=== PATIENT | male | born 1990 | race Two or more races ===

== ENCOUNTER 2022-06-10 07:38 | Emergency (ER) | payer OTHER, SELFPAY ==
--- NOTE | ~2022-06-10 | CT_ITS ---
EXAMINATION: CT ABDOMEN AND PELVIS WITH CONTRAST CLINICAL INFORMATION: Right coronary femur. History of Ezequiel gangrene. COMPARISON: None available. TECHNIQUE: Multidetector volumetric images were obtained from the superior aspect of the liver through the pubic symphysis following administration 85 mL of Omnipaque 350 intravenous contrast. Sagittal and coronal reformatted images were obtained on the technologist's workstation. Oral contrast: No This CT examination was performed using dose optimization techniques as appropriate, variously including the following: *Automated exposure control *Adjustment of mA and/or kV according to patient size (this includes techniques or standardized protocols for targeted exams where dose is matched to indication/reason for exam; i.e. extremities or head) *Use of iterative reconstruction technique DLP: 958 mGy-cm FINDINGS: LUNG BASES: The lung bases appear clear, with no evidence of inflammation or nodules. LIVER, GALLBLADDER, AND BILIARY TREE: Suspect fatty infiltration. Subcentimeter, segment 4, hypodense hepatic lesion (image 19, series 3), too small to characterize. In the absence of known or suspected malignancy elsewhere, the finding probably represents a benign entity, such as a simple cyst or hemangioma. No biliary ductal dilatation is appreciated. Unremarkable appearance of the gallbladder. PANCREAS: Unremarkable SPLEEN: Measures 12.9 cm in sagittal dimension. ADRENAL GLANDS: Unremarkable KIDNEYS AND URETERS: The kidneys appear unremarkable in size, shape, and attenuation. 0.5 cm, nonobstructing left lower pole collecting system stone. 0.4 cm, nonobstructing right mid to lower pole collecting system stone. No evidence of hydronephrosis, hydroureter, or significant perinephric stranding on either side. BLADDER: Unremarkable GASTROINTESTINAL TRACT: The small and large bowel appear unremarkable. Particular, the perianal region appears normal. Few, scattered colonic diverticula without evidence of diverticulitis. Normal-appearing distal ileum and vermiform appendix. ABDOMINAL WALL: Irregularity of the skin surface and induration of subcutaneous fat in the region of the right groin/upper inner thigh. Suspect associated 0.7 cm diameter by 5.2 cm in length phlegmon versus sinus tract (image 104, series 3). This does not appear to communicate with an internal organ. No evidence of subcutaneous air. No significant hernia is appreciated. LYMPH NODES: No evidence of adenopathy by size criteria. VASCULAR: Unremarkable PELVIC VISCERA: Unremarkable OSSEOUS STRUCTURES: Unremarkable CT/CT abdomen pelvis w IV con IMPRESSION: Irregularity of the skin surface and induration of subcutaneous fat in the region of the right groin/upper inner thigh. Suspect associated 0.7 cm diameter by 5.2 cm in length phlegmon versus sinus tract, which does not appear to communicate with an internal organ. No evidence of subcutaneous air. Additional findings, as above.
[2022-06-10 07:45] VITALS: BP 131/82; PULSE 109; RESP 17; TEMP 36.8; O2SAT 97; BMI 38.2
--- NOTE | 2022-06-10 08:14 | ED_ITS ---
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 Patient denies any scrotal discomfort or pain. He denies any fevers or chills. Related Data Previous Rx's Medication Instructions Recorded cephalexin 500 mg capsule 500 mg PO BID 7 days #14 caps 06/10/22 doxycycline monohydrate 100 mg 100 mg PO BID 7 days #14 caps 06/10/22 capsule Allergies Allergy/AdvReac Type Severity Reaction Status Date / Time No Known Allergies Allergy Verified 06/10/22 08:12 Review of Systems 2 Review of Systems: Pertinent positives and negatives as stated in HPI PMFSH Past Medical History Source: nursing notes reviewed Medical History (Updated 06/10/22 @ 12:35 by Tsering Calderón MD) Gangrene Kidney stone Penile cyst Surgical History (Updated 06/10/22 @ 09:05 by Tisha Sanchez RN) History of nasal surgery Social History Social History Alcohol intake: never Smoked in Last 30 Days: No Use of substances other than those prescribed or required for medical reasons: Yes Substance Use Type: Marijuana Advance Directives: No Advance Directives Information Provided: No Physical Exam ED Vital Signs: Vital Signs - 24 hr 06/10/22 07:45 06/10/22 10:04 06/10/22 12:27 Temperature 98.2 F Pulse Rate 109 H 88 76 Respiratory Rate 17 16 16 Blood Pressure 131/82 143/60 H 147/75 H Pulse Oximetry 97 98 97 Oxygen Delivery Method Room Air Room Air Room Air BMI result Body Mass Index 38.2 VITAL SIGNS: Reviewed. GENERAL: Well developed, well nourished, in no acute distress. HEAD: Normocephalic/atraumatic EYES: PERRLA, EOMI EARS: Ext canals without abnormality NOSE: Nares patent bilateral OROPHARYNX: no oral lesions noted, posterior pharynx clear NECK: Supple, no adenopathy LUNGS: Normal breath sounds. No adventitious sounds or accessory muscle use. SpO2<97> CARDIOVASCULAR: Regular rate and rhythm without noted murmurs ABDOMEN: Soft, non-tender, non-distended with bowel sounds. 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 There is a foul odor MUSCULOSKELETAL: No tenderness, deformities, or effusions noted on gross inspection. EXTREMITIES: No cyanosis, clubbing or edema. SKIN: Inspection of the skin reveals no rashes NEUROLOGIC: Alert and oriented x 4. Strength and sensation to light touch were grossly intact x 4. Medications Administered Discontinued Medications Generic Name Dose Route Start Last Admin Trade Name Freq PRN Reason Stop Dose Admin Sodium Chloride 1,000 mls @ 999 mls/hr 06/10/22 08:15 06/10/22 11:00 Ns IV 06/10/22 09:15 Infused .Q1H1M EULALIA Infusion Piperacillin Sod/Tazobactam 50 mls @ 100 mls/hr 06/10/22 08:13 06/10/22 09:26 Sod 3.375 gm/ Sodium Chloride IV 06/10/22 08:42 Infused ONCE ONE Infusion Vancomycin HCl 2,000 mg in 500 mls @ 250 mls/hr 06/10/22 08:30 06/10/22 11:05 Vancomycin/Ns IV 06/10/22 10:29 250 mls/hr ONCE ONE Administration Iohexol 100 ml 06/10/22 10:41 06/10/22 10:41 Iohexol 350 Mg/Ml 100 Ml Infus..Btl IV 06/10/22 10:42 85 ml ONCE ONE Administration Medical Decision Making Medical Decision Making [facility] Narrative: 0818: 31-year-old male with history and clinical presentation concerning for obvious groin infection, fluids, lactic acid/blood culture/antibiotics ordered. 1205: I reviewed all investigations to include imaging studies, patient has already received antibiotics, I reached out to General surgery and communicated my concerns about discharging even in the absence of any subcutaneous air or clinical exam findings of crepitus given patient's prior history Ezequiel's. 1225: Dr. Zaldivar came by and evaluated the patient and feels that patient most likely had a case of hidradenitis and recommends that patient be discharged with antibiotics and he can follow-up in their office. I discussed all results, findings as well as plans with the patient he is otherwise discharged home in stable condition with antibiotics. Differential Diagnosis Please see the discussion above Consult Healthcare Provider Management of the patient was discussed with: Drier Feeder Please see the discussion above Lab Data Please see the discussion above 06/10/22 09:03 06/10/22 09:03 Labs: Lab Results 06/10/22 06/10/22 06/10/22 Range/Units 08:35 09:03 09:03 WBC 12.5 H (4.8-10.8) X10*3/uL RBC 4.72 (4.60-5.80) X10*6/uL Hgb 14.5 (14.0-18.0) g/dl Hct 42.7 (42.0-52.0) % MCV 90.5 (80.0-98.0) fL MCH 30.7 (27.0-33.0) pg MCHC 34.0 (31.0-36.0) g/dl RDW 12.0 (11.0-16.0) % Plt Count 225 (160-400) X10*3/uL MPV 10.3 (9.4-12.4) fL Immature Gran % (Auto) 0.4 (0.0-0.4) % Neut % (Auto) 76.1 H (45-73) % Lymph % (Auto) 14.2 L (20-40) % [place] % (Auto) 8.3 (2-11) % Eos % (Auto) 0.7 (0-4) % Baso % (Auto) 0.3 (0-2) % Lymph # (Auto) 1.8 (1.2-4.9) X10*3/uL [place] # (Auto) 1.0 (0.1-1.2) X10*3/uL Eos # (Auto) 0.1 (0.0-0.4) X10*3/uL Baso # (Auto) 0.0 (0.0-0.2) X10*3/uL Abs Immat Gran (auto) 0.05 H (0.00-0.03) X10*3/uL Absolute Neuts (auto) 9.5 H (2.0-8.3) x10*3/uL Absolute Nucleated RBC 0.000 (0.0-0.012) X10*3/uL Nucleated RBC % (auto) 0.0 (0.0-0.2) /100WBC Sodium 143 (135-145) mmol/L Potassium 3.5 (3.3-5.1) mmol/L Chloride 107 (96-108) mmol/L Carbon Dioxide 26 (22-29) mmol/L Anion Gap 14 (12-20) BUN 14 (9-16) mg/dL Creatinine 1.02 (0.5-1.4) mg/dL Estim Creat Clear Calc 140.9 Estimated GFR > 60 Random Glucose 88 (60-115) mg/dL Lactic Acid (0.5-2.0) mmol/L Calcium 9.0 (8.4-10.2) mg/dL Total Bilirubin 1.0 (0.0-1.0) mg/dL AST 20 (5-37) U/L ALT 36 (0-40) U/L Alkaline Phosphatase 57 (39-117) U/L Total Protein 6.8 (6.5-8.0) g/dL Albumin 4.2 (3.5-5.0) g/dL Urine Color Yellow Urine Appearance Clear Urine pH 5.5 (5.0-9.0) Ur Specific [place] >= 1.030 H (1.005-1.025) Urine Protein Negative (Neg-Trace) mg/dL Urine Glucose (UA) Negative (Negative) mg/dL Urine Ketones 15 (Negative) mg/dL Urine Blood Negative (Negative) Urine Nitrite Negative (Negative) Ur Leukocyte Esterase Negative (Negative) 06/10/22 Range/Units 09:03 WBC (4.8-10.8) X10*3/uL RBC (4.60-5.80) X10*6/uL Hgb (14.0-18.0) g/dl Hct (42.0-52.0) % MCV (80.0-98.0) fL MCH (27.0-33.0) pg MCHC (31.0-36.0) g/dl RDW (11.0-16.0) % Plt Count (160-400) X10*3/uL MPV (9.4-12.4) fL Immature Gran % (Auto) (0.0-0.4) % Neut % (Auto) (45-73) % Lymph % (Auto) (20-40) % [place] % (Auto) (2-11) % Eos % (Auto) (0-4) % Baso % (Auto) (0-2) % Lymph # (Auto) (1.2-4.9) X10*3/uL [place] # (Auto) (0.1-1.2) X10*3/uL Eos # (Auto) (0.0-0.4) X10*3/uL Baso # (Auto) (0.0-0.2) X10*3/uL Abs Immat Gran (auto) (0.00-0.03) X10*3/uL Absolute Neuts (auto) (2.0-8.3) x10*3/uL Absolute Nucleated RBC (0.0-0.012) X10*3/uL Nucleated RBC % (auto) (0.0-0.2) /100WBC Sodium (135-145) mmol/L Potassium (3.3-5.1) mmol/L Chloride (96-108) mmol/L Carbon Dioxide (22-29) mmol/L Anion Gap (12-20) BUN (9-16) mg/dL Creatinine (0.5-1.4) mg/dL Estim Creat Clear Calc Estimated GFR Random Glucose (60-115) mg/dL Lactic Acid 1.5 (0.5-2.0) mmol/L Calcium (8.4-10.2) mg/dL Total Bilirubin (0.0-1.0) mg/dL AST (5-37) U/L ALT (0-40) U/L Alkaline Phosphatase (39-117) U/L Total Protein (6.5-8.0) g/dL Albumin (3.5-5.0) g/dL Urine Color Urine Appearance Urine pH (5.0-9.0) Ur Specific [place] (1.005-1.025) Urine Protein (Neg-Trace) mg/dL Urine Glucose (UA) (Negative) mg/dL Urine Ketones (Negative) mg/dL Urine Blood (Negative) Urine Nitrite (Negative) Ur Leukocyte Esterase (Negative) Radiology Impression Radiologist Impression: My interpretation is in agreement with radiology's impression of the imaging studies. Discharge Plan Discharge Clinical Impression: Hidradenitis suppurativa Patient Disposition: Home, Self-Care Instructions: Hidradenitis Suppurativa (ED) Additional Instructions: 1. Use warm compresses to the area to promote drainage. 2. Complete the entire course of antibiotics as prescribed. 3. You have been given a referral to follow-up with general surgery and should call the office 1st thing in the morning to set up an appointment for re- evaluation. Return to the ER for any worsening symptoms. Prescriptions: New doxycycline monohydrate 100 mg capsule 100 mg PO BID 7 Days Qty: 14 0RF cephalexin 500 mg capsule 500 mg PO BID 7 Days Qty: 14 0RF Referrals: Elie Zaldivar MD [Physician] -
[2022-06-10 08:43] LABS: Appearance Urine Clear; Color Urine Yellow; Glucose Urine UA Negative (Negative); Leukocyte Esterase Urine Negative (Negative); Nitrite Urine Negative (Negative); PH 5.5 (5.0-9.0); Specific Gravity - Urine >= 1.030 (1.005-1.025); Urine Blood Negative (Negative); Urine Ketones 15 mg/dL (Negative); Urine Protein Negative (Neg-Trace)
[2022-06-10] MEDS: 0.9 % Sodium Chloride 1,000 ML 999 ML IV (08:56)
[2022-06-10] MEDS: Piperacillin Sodium/Tazobactam 3.375 GM in 0.9 % Sodium Chloride 50 ML IV (08:56)
--- NOTE | 2022-06-10 09:06 | PC.NURSE ---
patient a&ox3, iv inserted, labs drawn, urine obtained, IVF hung per order, 1st abx hung per order, rt groin redness/warm to touch, 8/10 pain, call de leon within reach, will continue to monitor.
[2022-06-10 09:07] LABS: MANUAL DIFF FLAG NO
[2022-06-10 09:08] LABS: Basophils Percent Auto 0.3 % (0-2); Eosinophils Absolute Auto 0.1 X10*3/uL (0.0-0.4); Eosinophils Percent Auto 0.7 % (0-4); Hematocrit 42.7 % (42.0-52.0); Hemoglobin 14.5 g/dl (14.0-18.0); Imm Gran Abs Auto 0.05 X10*3/uL (0.00-0.03); Imm Gran Pct Auto 0.4 % (0.0-0.4); Lymphocytes Absolute Auto 1.8 X10*3/uL (1.2-4.9); Lymphocytes Percent Auto 14.2 % (20-40); Mean Corpuscular Hemoglobin 30.7 pg (27.0-33.0); Mean Corpuscular Volume 90.5 fL (80.0-98.0); Mean Platelet Volume 10.3 fL (9.4-12.4); Monocytes Percent Auto 8.3 % (2-11); Neutrophils Absolute Auto 9.5 x10*3/uL (2.0-8.3); Neutrophils Percent Auto 76.1 % (45-73); Platelet Count 225 X10*3/uL (160-400); Red Blood Count 4.72 X10*6/uL (4.60-5.80); White Blood Count 12.5 X10*3/uL (4.8-10.8)
[2022-06-10 09:23] LABS: Lactic Acid 1.5 mmol/L (0.5-2.0)
[2022-06-10 09:28] LABS: Alanine Aminotransferase 36 U/L (0-40); Albumin Level 4.2 g/dL (3.5-5.0); Alkaline Phosphatase 57 U/L (39-117); Anion Gap 14 (12-20); Aspartate Amino Transferase 20 U/L (5-37); Blood Urea Nitrogen 14 mg/dL (9-16); Carbon Dioxide 26 mmol/L (22-29); Chloride 107 mmol/L (96-108); Creatinine Clr Calc Pharmacy 140.9; Estimated Glomerular Filt Rate > 60; Glucose Random 88 mg/dL (60-115); Potassium 3.5 mmol/L (3.3-5.1); Sodium 143 mmol/L (135-145); Total Protein 6.8 g/dL (6.5-8.0)
[2022-06-10 10:04] VITALS: BP 143/60; PULSE 88; RESP 16; O2SAT 98
--- NOTE | 2022-06-10 10:24 | PC.NURSE ---
pt to CT scan, will hang second abx upon his return.
[2022-06-10] MEDS: iohexoL 350 MG/ML 100 ML INFUS..BTL IV (10:41)
[2022-06-10] MEDS: vancomycin/NS 2,000 MG/500 ML PLAST..BAG 250 MG IV (11:05)
[2022-06-10 12:27] VITALS: BP 147/75; PULSE 76; RESP 16; O2SAT 97
--- NOTE | 2022-06-10 12:54 | P.CONGS_ITS ---
History of Present Illness Consult details Consult date: 06/10/22 Narrative: ER consult for evaluation of a right groin draining infective process. Approximately over a year ago patient had some sort of surgery involving the right groin crease area which, after examination, looks like he had an wide local excision for hidradenitis suppurativa. He describes that he had some sort of significant infection suggestive of necrotizing fasciitis but though surgical incision does not correspond to that history. Patient today has had approximately 3-4 day history of drainage from the area. Patient denies any fever or chills. He is not septic appearing. He is here with his significant other. Chart was reviewed and patient evaluated. White blood cell count is 12.5 PMFSH Past Medical History Medical History (Updated 06/10/22 @ 12:35 by Tsering Calderón MD) Gangrene Kidney stone Penile cyst Surgical History Surgical History (Updated 06/10/22 @ 09:05 by Tisha Sanchez RN) History of nasal surgery Social History Social History Alcohol intake: never Smoked in Last 30 Days: No Use of substances other than those prescribed or required for medical reasons: Yes Substance Use Type: Marijuana Advance Directives: No Advance Directives Information Provided: No Meds Allergies Allergy/AdvReac Type Severity Reaction Status Date / Time No Known Allergies Allergy Verified 06/10/22 08:12 Physical Exam Vital Signs: Vital Signs: Last Vital Signs Temp 98.2 F 06/10/22 07:45 Pulse 76 06/10/22 12:27 Resp 16 06/10/22 12:27 BP 147/75 H 06/10/22 12:27 Pulse Ox 97 06/10/22 12:27 O2 Del Method Room Air 06/10/22 12:27 BMI result Body Mass Index 38.2 Extrem: Other: Patient has what appears to be a flare-up of hidradenitis suppurativa along the medial aspect of his right groin in proximity to a previous surgical excision site. The area demonstrates some mild erythema and some spontaneous drainage. Mildly tender to palpation. No groin adenopathy appreciated. Extremities grossly neurovascularly intact. Results Labs 06/10/22 09:03 06/10/22 09:03 Labs: Abnormal lab results 06/10/22 06/10/22 Range/Units 08:35 09:03 WBC 12.5 H (4.8-10.8) X10*3/uL Neut % (Auto) 76.1 H (45-73) % Lymph % (Auto) 14.2 L (20-40) % Abs Immat Gran (auto) 0.05 H (0.00-0.03) X10*3/uL Absolute Neuts (auto) 9.5 H (2.0-8.3) x10*3/uL Ur Specific [place] >= 1.030 H (1.005-1.025) Short CBC 06/10/22 Range/Units 09:03 WBC 12.5 H (4.8-10.8) X10*3/uL Hgb 14.5 (14.0-18.0) g/dl Hct 42.7 (42.0-52.0) % Plt Count 225 (160-400) X10*3/uL BMP 06/10/22 09:03 Sodium 143 Potassium 3.5 Chloride 107 Carbon Dioxide 26 BUN 14 Creatinine 1.02 Calcium 9.0 Liver Function 06/10/22 Range/Units 09:03 Total Bilirubin 1.0 (0.0-1.0) mg/dL AST 20 (5-37) U/L ALT 36 (0-40) U/L Alkaline Phosphatase 57 (39-117) U/L Albumin 4.2 (3.5-5.0) g/dL Urine 06/10/22 Range/Units 08:35 Urine Color Yellow Urine Appearance Clear Urine pH 5.5 (5.0-9.0) Ur Specific [place] >= 1.030 H (1.005-1.025) Urine Protein Negative (Neg-Trace) mg/dL Urine Glucose (UA) Negative (Negative) mg/dL All other labs normal. Assessment and Plan (1) Hidradenitis suppurativa: Status: Acute Plan I discussed with the patient and afterwards with the ER physician caring for the patient that this appears to be a mild flare-up of his hidradenitis suppurativa. The patient is not septic or ill appearing. He was is receiving IV antibiotics. At present, my current recommendation is to send him home with oral antibiotics, local wound care in the form of warm compresses to the area, and have him call for follow-up in the surgical clinic next week or p.r.n.. Should his symptoms progress or worsen there is interim, should return to the ER. Time Spent With Patient Time: Total time managing care of this patient today ____ minutes. Procedures Date of Service Date of Service: 06/10/22
== END 2022-06-10 13:13 | disposition home or self-care (01) ==
PROVIDERS: Emergency Provider Student in an Organized Health Care Education/Training Program
DX: L73.2 Hidradenitis suppurativa (principal); R10.31 Right lower quadrant pain; F12.90 Cannabis use, unspecified, uncomplicated
CPT/HCPCS: 36415; 74177; 80053; 81003; 83605; 85025; 87040; 96361; 96365; 96366; 96367; 99284; J2543; J3370; Q9967

== ENCOUNTER 2023-11-01 13:43 | Emergency (ER) | payer OTHER, SELFPAY ==
--- NOTE | ~2023-11-01 | XR_ITS ---
EXAMINATION: XR HAND/WRIST, RIGHT CLINICAL INFORMATION: Fall, trauma, ulnar pain COMPARISON: None available. TECHNIQUE: Four views of the right hand and wrist. FINDINGS: Comminuted possibly intra-articular fracture of the base of the fourth metacarpal with some displaced chip fracture fragments noted along the dorsal aspect of the hand. Soft tissue swelling. Joint spaces are maintained. XR/XR hand wrist RT IMPRESSION: 1. Comminuted possibly intra-articular fracture of the base of the fourth metacarpal with some displaced chip fracture fragments noted along the dorsal aspect of the hand. 2. Soft tissue swelling about the hand. Electronically signed by: Esthela Montemayor MD 11/01/2023 02:39 PM EDT RP
--- NOTE | 2023-11-01 13:44 | ED_ITS ---
HPI - Extremity Injury (Upper) General Chief Complaint: Extremity Injury, Upper Stated Complaint: r hand inj Time Seen by Provider: 11/01/23 15:59 Source: patient Mode of arrival: ambulatory Limitations: no limitations History of Present Illness ED Provider: Parth Keen PA-C HPI narrative: 32-year-old male presents to ED for right hand pain. Patient states he was doing some car work any slipped and fell onto his right outstretched hand. Patient denies hitting head or loss of consciousness. Patient denies any other complaints. Related Data Previous Rx's ?Medication ?Instructions ?Recorded cephalexin 500 mg capsule 500 mg PO BID 7 days #14 caps 06/10/22 doxycycline monohydrate 100 mg 100 mg PO BID 7 days #14 caps 06/10/22 capsule naproxen 500 mg tablet 500 mg PO BID PRN pain 7 days #14 11/01/23 tabs Allergies Allergy/AdvReac Type Severity Reaction Status Date / Time No Known Allergies Allergy Verified 11/01/23 13:47 Review of Systems 2 Review of Systems: Right hand pain Yes all other systems are reviewed and are negative [facility] Past Medical History Medical History (Updated 11/01/23 @ 17:08 by CLAUDE Juarez) Gangrene Penile cyst Kidney stone Surgical History (Updated 06/10/22 @ 09:05 by Tisha Sanchez RN) History of nasal surgery Social History Social History Alcohol intake: never Substance Use Type: Marijuana Advance Directives: No Advance Directives Information Provided: Yes Do you have a plan to hurt others: No Plan Physical Exam 2 Vital Signs: Vital Signs: Last Vital Signs Temp 98 F 11/01/23 17:16 Pulse 76 11/01/23 17:16 Resp 18 11/01/23 17:16 BP 132/78 11/01/23 17:16 Pulse Ox 98 11/01/23 16:54 O2 Del Method Room Air 11/01/23 16:54 O2 Flow Rate 98 11/01/23 17:16 BMI result Body Mass Index 32.1 Const: General: cooperative, healthy appearing, comfortable, no acute distress, well developed, alert, awake and Physically active O rientation/consciousness: patient oriented x3 HEENT: Head: Yes normal to inspection, Yes No palpable skull fracture present, Yes normocephalic, Yes atraumatic and No abrasion Eyes: General: appearance normal, both eyes and all related structures Neck: Neck: Yes normal visual inspection, Yes full ROM, Yes no lymphadenopathy, Yes no meningeal signs, Yes trachea midline, Yes supple, No anterior neck swelling and No tender Chest: Chest palpation & inspection: normal inspection of the chest and normal palpation of entire chest wall Resp: Effort & Inspection: normal respiratory effort and able to speak in complete sentences Auscultation: clear to auscultation bilaterally Cardio: Jugular venous distension: no JVD Heart sounds: S1 normal heart sound present and S2 normal heart sound present GI: Inspection: Yes normal to inspection Palpation (GI): Soft to palpation, not firm, nontender, no guarding and not rigid : General: No CVA tenderness and Yes no CVA tenderness Back/Spine/Pelvis: Back: no CVA tenderness, No CVA tenderness and No back tenderness Skin: General skin exam: no rashes or lesions noted, elasticity normal and turgor normal Neuro: General: patient oriented x3, gait normal, tone normal, moves all extremities, Normal light touch and pain sensation, no meningeal signs, no focal motor deficits, CN's II-XI intact bilaterally and normal sensation to monofilament Extrem: General: Yes normal to inspection, Yes full ROM and Yes capillary refill normal Hand/finger images: 1. Positive for tenderness on palpation. Negative for crepitus, ecchymosis, or obvious deformity. Motor exam intact but limited due to pain. Neurovascular exam intact Psych: Appearance: grossly normal, well kempt and not disheveled Course Course Course Narrative: This is an RME performed by Zach Narayan CNP: Additional HPI, ROS, PE not included below will be deferred to primary provider. Patient is a 32-year-old male who presents to emergency department for evaluation of a right hand injury. States he was working on a car, who has had slipped essentially striking down onto the concrete. Reports that he felt a pop. Pain is localized to the ulnar aspect of the wrist and radiates to the 4th and 5th digit. Has associated numbness tingling and burning sensation. Weakness to the hand. Wrist is held in a slightly flexed position. 2+ radial pulse. Plan: XR Medical Decision Making Medical Decision Making MDM Narrative: 32-year-old male presents to ED for right hand pain.positive for metacarpal fracture. Presently no need for reduction. X-ray committed fracture. Patient is placed in ulnar gutter splint. Patient well-appearing. Patient explained worrisome signs and informed to follow up with primary care provider. Patient given card for information to call financial office to help with his insurance. Differential Diagnosis Differential Diagnoses: The differential diagnosis associated with the presentation includes (Fracture, dislocation,) Admission/Observation Consideration of admission/observation: Escalation of care including admission/observation considered Independent Interpretation I performed an independent interpretation of an: Plain X-Ray Radiology Impression Discussion of test interpretation with radiology: I have reviewed the radiologist's reading. Independent Historian Clinical information obtained from an independent historian. History obtained from or confirmed by: Other (Patient) External Record Review External record reviewed: Other (Prior visits) Discharge Plan Discharge Clinical Impression: Fracture of hand Patient Disposition: Home, Self-Care Instructions: Hand Fracture (ED) Additional Instructions: Return to the ED immediately for any bluish black discoloration, numbness/tingling, redness, severe pain, coldness, hotness, or any other concerning symptoms. Recommend follow-up with orthopedic surgeon Prescriptions: New naproxen 500 mg tablet 500 mg PO BID PRN (Reason: pain) 7 Days Qty: 14 0RF No Action doxycycline monohydrate 100 mg capsule 100 mg PO BID 7 Days Qty: 14 0RF cephalexin 500 mg capsule 500 mg PO BID 7 Days Qty: 14 0RF Referrals: [facility] Orthopedic Surgeons [Provider Group] (hand fracture) Stand Alone Forms: Work/School Release Interventions: ED Discharge Assessment Last Done: 11/01/23 17:16 Discharge Date/Time: 11/01/23 17:17 Print Language: Kyrgyz
[2023-11-01 13:45] VITALS: BP 130/83; PULSE 77; RESP 18; TEMP 36.8; O2SAT 98; BMI 32.1
[2023-11-01 16:54] VITALS: BP 132/78; PULSE 76; RESP 18; TEMP 36.6; O2SAT 98
[2023-11-01 17:16] VITALS: BP 132/78; PULSE 76; RESP 18; TEMP 36.6
== END 2023-11-01 17:17 | disposition home or self-care (01) ==
PROVIDERS: Emergency Provider Emergency Medicine Emergency Medical Services
DX: S62.91XA Unspecified fracture of right hand, initial encounter for closed fracture (principal); M25.531 Pain in right wrist; Y29.XXXA Contact with blunt object, undetermined intent, initial encounter; Y93.89 Activity, other specified; Y92.89 Other specified places as the place of occurrence of the external cause; Y99.8 Other external cause status
CPT/HCPCS: 29125; 73110; 73130; 99282; 99284

== ENCOUNTER 2023-11-03 08:57 | Outpatient (REF) | payer SELFPAY ==
--- NOTE | ~2023-11-03 | XR_ITS ---
EXAMINATION: XR HAND, RIGHT CLINICAL INFORMATION: M79.641 - Pain in right hand : Follow-up fracture fourth proximal metacarpal, dorsal triquetral. COMPARISON: 11/01/2023. TECHNIQUE: PA, lateral, and oblique views of the right hand. FINDINGS: Redemonstration of intra-articular oblique fracture of the base of the fourth metacarpal. There is minimal displacement measuring approximately 1.3 mm. No change in alignment. This appears to extend into the proximal articular surface. The known triquetral fracture is not well seen due to lack of a true lateral. Otherwise, normal alignment and joint spaces. No additional fractures. There is mild dorsal and hypothenar soft tissue swelling. XR/XR hand RT min 3V IMPRESSION: -No significant interval change in the appearance of intra-articular minimally displaced fractures of the proximal fourth metacarpal. -Triquetral fracture not well assessed due to lack of true lateral. Electronically signed by: Silver Mccallum MD 01/12/2024 12:43 PM LEXI
== END 2023-11-03 08:58 | disposition home or self-care (01) ==
LOC: HO.HOSX 08:57
DX: S62.141A Displaced fracture of body of hamate [unciform] bone, right wrist, initial encounter for closed fracture (principal); S62.304A Unspecified fracture of fourth metacarpal bone, right hand, initial encounter for closed fracture; W22.8XXA Striking against or struck by other objects, initial encounter; Y93.9 Activity, unspecified; Y92.9 Unspecified place or not applicable; Y99.9 Unspecified external cause status
CPT/HCPCS: 73130; 99202

== ENCOUNTER → 2023-11-03 12:54 | Outpatient (BNV) | payer SELFPAY | PROVIDERS: Visit Provider Radiology Diagnostic Radiology | DX: S62.304A Unspecified fracture of fourth metacarpal bone, right hand, initial encounter for closed fracture (principal) | CPT/HCPCS: 73130 ==

== ENCOUNTER 2023-11-03 13:25 | Outpatient (AMB) | payer SELFPAY ==
[2023-11-03 13:47] VITALS: BMI 32.1
--- NOTE | 2023-11-03 13:47 | A.OFFVIS_ITS ---
Vital Signs 11/03/23 13:47 Height 5 ft 11 in Weight 230 lb BMI 32.1 Intake Visit Reasons: FC- Right metacarpal fracture DOI 11/01/23 Intake Note: Harry is a 32-year-old right hand dominant male who presents today for an ED follow up evaluation s/p right metacarpal hand fracture, DOI 11/01/23, when he was working on car and his right hand slipped, busting his knuckle on the cement. Reports numbness on the dorsal aspect of the right hand. Patient also reports tingling on the right 3rd and 4th fingers and along the wrist. Patient is not taking anything for pain. Patient reports a right thumb tendon rupture about 2 years ago for which he did not have surgery. He was seen at a hospital in [place]. Allergies No Known Allergies Allergy (Verified 11/03/23 13:55) HPI HPI FC- Right metacarpal fracture DOI 11/01/23: Details: Patient is a 32-year-old male who presents for evaluation of right 4th metacarpal fracture, date of injury 11/01/2023. The patient reports that on that date, he was working on his car, when his hand slipped off of the tool he was using and slammed into a concrete floor. The patient reports that he began to experience significant swelling and discomfort at that time, and he was evaluated in the emergency department. At that time, x-rays were taken, revealing a fracture of the base of the right 4th metacarpal, as well as a fracture fragment off of the posterior aspect of the carpal bones, likely representing a displaced hamate fracture. Today, the patient reports that he is feeling better than he was immediately following his injury, and then he is not experiencing any pain in his right hand at this time. Patient denies any numbness or tingling in the right hand. No other acute complaints or concerns at this time. FORMERLY [facility], [facility] Medical History (Updated 11/03/23 @ 14:27 by CLAUDE Brumfield) Gangrene Penile cyst Kidney stone Surgical History (Updated 06/10/22 @ 09:05 by Tisha Sanchez RN) History of nasal surgery Social History Alcohol intake: never Substance Use Type: Marijuana Review of Systems Const All systems reviewed & are unremarkable except as noted in HPI and below Physical Exam Vital Signs: BMI result Body Mass Index 32.1 Extrem Other: Patient is alert, oriented, and in no acute distress. Neuro: Normal sensation of the tips of all digits of the right hand at this time Vascular: Cap refill brisk Pain: Patient reports minimal tenderness to palpation over the 4th and 5th metacarpals of the right hand Patient reports no tenderness to palpation of the radial styloid, ulnar styloid, 2nd and 3rd metacarpals, or elsewhere in the right wrist and hand ROM: With encouragement, patient is able to make a closed fist and extend the digits of the right hand fully Skin: No lacerations or abrasions. General: Moderate edema noted of the right hand over the 4th and 5th metacarpal bases No ecchymosis, erythema, or evidence of infection. Psych: Appears grossly normal Affect normal Attitude cooperative Results Reviewed Results Reviewed: X-rays obtained in the office today and independently reviewed by me, Nehemiah Vargas PA-C, demonstrate minimally displaced fracture of the right 4th metacarpal base, and x-rays taken in the ED on 10/01/2023 reveal hamate fracture with dorsal comminution. Assessment & Plan Assessment & Plan (1) Fracture of hamate bone of wrist: Code(s): S62.143A - Displaced fracture of body of hamate [unciform] bone, unspecified wrist, initial encounter for closed fracture Category: Medical (2) Fracture of fourth metacarpal bone of right hand: Code(s): S62.304A - Unspecified fracture of fourth metacarpal bone, right hand, initial encounter for closed fracture Category: Medical Plan 1. 4th metacarpal base fracture, right 2. Hamate fracture, right Date of injury 10/01/2023 I discussed the patient with Dr. Barajas, who was not available to see the patient in clinic today, and a collaborative treatment plan was formed: I educated the patient about the condition. I discussed both operative and nonoperative treatment options. The patient would like to proceed with surgery. Of note, the patient is a self-pay patient, but when asked if he is comfortable pursuing surgery, he states ?I will do what I have to do?. The patient was put in touch with our financially department to see if there is any help they can provide him at this time with regards to pain for surgery. The risks and benefits of operative treatment were discussed with the patient and the patient wishes to proceed with surgery. These risks include, but are not limited to, risk of damage to blood vessels, nerves, tendons, infection, recurrence, incomplete relief of preoperative symptoms, persistent pain, p ossible need for further surgery, and the risks associated with regional blocks and/or anesthesia. Plan is to take the patient to the operating room on 11/09/2023 for the following procedures: 1. Fourth metacarpal base CRPP versus ORIF with possible hamate CRPP versus ORIF All of the preoperative paperwork including the consent was discussed today. All of the patient's questions were answered in the clinic today. The patient understands that they will be in contact with our equalizing saw operator to discuss scheduling their procedure. Patient denies diabetes, blood thinners, asthma, heart issues, lung issues, kidney issues Patient does report current smoking, and is educated about the effects of smoking on wound and bony healing Patient states he will attempt cutting down on smoking, or total smoking cessation CT scan is also ordered urgently, for further assessment of fracture alignment prior to surgery Orders: Orders CT wrist RT wo IV con Today S62.143A - Displaced fracture of body of hamate [unciform] bone, unspecified wrist, initial encounter for closed fracture, S62. 304A - Unspecified fracture of fourth metacarpal bone, right hand, initial encounter for closed fracture Medications: Discontinued cephalexin Discontinued Reason: Patient no longer taking 500 mg PO BID 7 days 14 caps 0RF doxycycline monohydrate Discontinued Reason: Patient no longer taking 100 mg PO BID 7 days 14 caps 0RF naproxen Discontinued Reason: Patient no longer taking 500 mg PO BID 7 days PRN 14 tabs 0RF pain Coding Level of Care Code New Pt Level 4 (64664) Diagnoses Fracture of hamate bone of wrist S62.143A Fracture of fourth metacarpal bone of right hand S62.304A
== END 2023-11-03 14:55 | disposition home or self-care (01) ==
DX: S62.143A Displaced fracture of body of hamate [unciform] bone, unspecified wrist, initial encounter for closed fracture (principal); S62.304A Unspecified fracture of fourth metacarpal bone, right hand, initial encounter for closed fracture; W22.8XXA Striking against or struck by other objects, initial encounter
CPT/HCPCS: 99204

== ENCOUNTER 2023-11-09 06:01 | Day surgery (SDC) | payer SELFPAY ==
--- NOTE | 2023-11-05 14:08 | HO.ANESPROP2 ---
Documented by User: Shauna Hernandez NP 11/05/23 14:11 HPI - Anesthesia Eval Consult details Narrative: 32yo M for Right Ring Finger HAMATE CRPP VS ORIF [facility] Active Problems Active Problems: All Active Problems Fracture of hamate bone of wrist (Acute) Fracture of fourth metacarpal bone of right hand (Acute) Past Medical History Medical History Gangrene Penile cyst Kidney stone Surgical History Surgical History History of nasal surgery Social History Social History Are you a primary resident care manager to a significant other at home: No Alcohol intake: never Patient Tobacco Use Status: Current everyday Tobacco user Cigarettes Per Day: 10 Use of substances other than those prescribed or required for medical reasons: Yes Substance Use Type: Marijuana Substance Use Frequency: Daily Have you been hit, kicked, punched, or otherwise hurt by someone within the past year? If so, by whom?: No Are you DNR?: No Advance Directives: No Advance Directives Information Provided: Yes Recently lost weight without trying: No Nutrition Risks: No Nutritional Risk Meds Allergies Allergy/AdvReac Type Severity Reaction Status Date / Time No Known Allergies Allergy Verified 11/03/23 13:55 Active Medications: Current Medications Cefazolin Sodium/Dextrose (Ancef) 2 gm in 50 mls @ 100 mls/hr IV PREOP ONE Stop: 11/09/23 05:59 Assessment and Plan Assessment Anesthesia Assessment: Chart Reviewed Documented by User: Kailee Back MD 11/09/23 08:25 PMFSH Past Medical History Medical History Gangrene Penile cyst Kidney stone Family History Family history of problems with anesthesia: No Surgical History Surgical History History of nasal surgery History of Problems with Anesthesia: No Social History Social History Are you a primary resident care manager to a significant other at home: No Alcohol intake: never Patient Tobacco Use Status: Current everyday Tobacco user Cigarettes Per Day: 10 Use of substances other than those prescribed or required for medical reasons: Yes Substance Use Type: Marijuana Substance Use Frequency: Daily Have you been hit, kicked, punched, or otherwise hurt by someone within the past year? If so, by whom?: No Are you DNR?: No Advance Directives: No Advance Directives Information Provided: Yes Recently lost weight without trying: No Nutrition Risks: No Nutritional Risk Meds Allergies Allergy/AdvReac Type Severity Reaction Status Date / Time No Known Allergies Allergy Verified 11/03/23 13:55 Exam Airway Mallampati Class: III (very poor dentition, facial hair and multiple loose , missing , chipped teeth, extreme anxiety) TM Dist: <=3cm Neck ROM: Limited Heart: rrr Lungs: cta Assessment and Plan Assessment Anesthesia Assessment: Anesthesia Plan Discussed Final Anesthetic Review Family History of Problems with Anesthesia: No History of Problems with Anesthesia: No NPO: Yes ASA Class: III Final Preanesthetic Review: No Changes in Pt Med Stat, Meds/Allgs Chart Reviewed, Consent Obtained/Reviewed and Anes Risks/Benef Reviewed Patient Risk: Intermediate Procedure Risk: Intermediate Anesthetic Plan Anesthetic Plan: GA and Regional Block Disposition: Standard PACU
[2023-11-09 06:25] VITALS: BMI 40.2
[2023-11-09 06:44] VITALS: BP 160/83; PULSE 68; RESP 18; TEMP 36.9; O2SAT 96
[2023-11-09] MEDS: Lactated Ringers 1,000 ML 100 ML IVCONT (06:54)
--- NOTE | 2023-11-09 07:45 | MHC.SHP ---
Pre-Procedural Eval Section A - 24 Hr Update-Section A only Date of Service: 11/09/23 The patient is an INPATIENT: No Changes since office visit: No Cold of Flu in the past 2 weeks, No New Medical Problems, No Changes in Medication and No Patient answered all questions The patient has been examined within 24 hours of the surgical procedure. The History & Physical has been completed within 30 days and I have reviewed it.: Yes Section B - Complete if H&P > 30 days Chief Complaint: Fracture of unspecified phalanx of right ring fing Allergies: Allergies Allergy/AdvReac Type Severity Reaction Status Date / Time No Known Allergies Allergy Verified 11/03/23 13:55 Plan Diagnosis/Plan: Unchanged I have reviewed the history and physical and performed a pertinent physical examination on my patient. No changes have occurred unless specified. Time Spent With Patient Time: Total time managing care of this patient today ____ minutes.
--- NOTE | 2023-11-09 07:46 | P.OP_ITS ---
Operative Note Operative Note Date of Service: 11/09/23 Narrative: Operative Note Narrative: Preop diagnosis: 1. Right hamate body fracture 2. Right 4th Metacarpal base fracture Postop diagnosis: Same Procedure: 1. Right hamate body fracture CRPP 2. Right 4th Metacarpal base fracture closed reduction percutaneous pinning 3. Right Ulnar nerve block Surgeon: Indu Barajas MD Senior Data Quality Analyst: None Anesthesia: General Anesthesia plus a regional block Findings: Metacarpal fracture Implants: 0.062 K-wires times 1, and 0.045 K-wire x1 Tourniquet time: None EBL: Minimal Specimen: None Drains: None Complications: None Disposition: Brought to the recovery room in stable condition Plan: Follow-up in 10-14 days for a wound check, postop radiographs and for placement in a short-arm cast , with ability to work on active finger range of motion from the MCP joints distally. Anticipate K-wire removal in 4-5 weeks based on interval bony healing Educate the patient that full fracture healing anticipated in approximately 8-12 weeks. Indications: The patient is 32 years old with a right 4th metacarpal base fracture, and a mildly displaced fracture of the dorsal ulnar aspect of the hamate body involving the CMC joint. . The risks and benefits of operative treatment, including but not limited to risk of damage to blood vessels, nerves, tendons, infection, recurrence, delayed or nonunion of fracture, persistent pain or numbness, incomplete resolution of preoperative symptoms, or need for further surgery were discussed with the patient and they wished to proceed with surgery. Procedure: Once consent was obtained patient was brought back to the operating suite and placed in the operating table in a supine position. A regional block was performed by the anesthesia team. Perioperative antibiotics and general anesthesia was administered by the anesthesia team. A tourniquet was applied to the proximal aspect of the right upper extremity and the limb was prepped and draped in a standard surgical fashion. Tourniquet was not inflated during the case. The FluoroScan was used during the case to assist with our fracture reduction and placement of all implants. A closed reduction was performed on the patient's hamate fracture, involving the CMC joint. This was done by placing a 0.045 K-wire through the dorsal ulnar fragment of the hamate, and advancing the K-wire across the fracture site. The K-wire was then carefully advanced across the hamate capitate joint and into the capitate body. Once satisfied with the placement of this K-wire in our reduction on multiple fluoroscopic images, I then turned my attention to the 4th metacarpal base fracture. Some gentle traction was applied longitudinally across the 4th metacarpal. metacarpal shaft fracture. I placed a single 0.062 K-wire transversely through the ulnar shaft of the 5th metacarpal across the 4th metacarpal shaft just distal to the fracture and into the 3rd metacarpal shaft. This was felt to adequately hold the 4th metacarpal fracture in alignment and out to length. Fracture alignment was assessed for both angular and rotational malalignment. Once satisfied with our fracture reduction and implant placement, the K-wires were bent and cut short and pin caps applied. Final fluoroscopic images were then obtained. The wounds were copiously irrigated with normal saline. An ulnar nerve block was then performed by infiltrating about the ulnar nerve at the wrist with some 1% lidocaine with epinephrine for postop pain control. A Sterile dressing and short volar splint was applied. The patient appears to have tolerated the procedure well and with no complications. All digits were well vascularized at the conclusion of the case.
[2023-11-09 09:16] VITALS: BP 142/84; PULSE 68; RESP 16; TEMP 36.1; O2SAT 99
[2023-11-09 09:20] VITALS: BP 137/68; PULSE 81; RESP 16; O2SAT 92
[2023-11-09 09:25] VITALS: BP 144/72; PULSE 70; RESP 16; O2SAT 93
[2023-11-09 09:30] VITALS: BP 123/77; PULSE 62; RESP 16; O2SAT 94
[2023-11-09 09:45] VITALS: BP 138/96; PULSE 67; RESP 16; TEMP 36.1; O2SAT 96
== END 2023-11-09 10:20 | disposition home or self-care (01) ==
PROVIDERS: Visit Provider Orthopaedic Surgery
PROC: (CPT 25635; principal; 2023-11-09 07:30)
DX: S62.304A Unspecified fracture of fourth metacarpal bone, right hand, initial encounter for closed fracture (principal); S62.143A Displaced fracture of body of hamate [unciform] bone, unspecified wrist, initial encounter for closed fracture; W22.09XA Striking against other stationary object, initial encounter; Y93.89 Activity, other specified; Y92.9 Unspecified place or not applicable; Y99.9 Unspecified external cause status; F17.210 Nicotine dependence, cigarettes, uncomplicated
CPT/HCPCS: 25635; 26608; J0131; J0665; J0690; J1100; J2250; J2405; J2704

== ENCOUNTER → 2023-11-09 06:01 | Outpatient (BNV) | payer SELFPAY | PROVIDERS: Visit Provider Orthopaedic Surgery | DX: S62.314A Displaced fracture of base of fourth metacarpal bone, right hand, initial encounter for closed fracture (principal) | CPT/HCPCS: 26608 ==

== ENCOUNTER 2023-11-23 09:51 | Outpatient (REF) | payer SELFPAY ==
--- NOTE | ~2023-11-23 | XR_ITS ---
EXAMINATION: XR HAND, RIGHT CLINICAL INFORMATION: M79.643 - Pain in unspecified hand COMPARISON: None available. TECHNIQUE: PA, oblique, and ball catcher views of the right hand. FINDINGS: There has been placement of K wire traversing the proximal third through fifth metacarpal row , as well as a second K wire traversing the distal hamate, tip in the distal capitate. No complication evident. Oblique intra-articular fracture base of fourth metacarpal, with no significant displacement. Hamate fracture not well seen due to obliquity and lack of a true lateral. No new findings seen. Soft tissue swelling appears similar. XR/XR hand RT min 3V IMPRESSION: 1. Placement of 2 K wires. 2. Similar appearing linear fracture base of fourth metacarpal, and distal hamate. Electronically signed by: Silver Mccallum MD 01/12/2024 12:49 PM [facility] BERKOWITZ
== END 2023-11-23 09:52 | disposition home or self-care (01) ==
LOC: HO.HOSX 09:51
PROVIDERS: Visit Provider Physician Assistant
DX: M79.641 Pain in right hand (principal); S62.304D Unspecified fracture of fourth metacarpal bone, right hand, subsequent encounter for fracture with routine healing; S62.143D Displaced fracture of body of hamate [unciform] bone, unspecified wrist, subsequent encounter for fracture with routine healing; Z46.89 Encounter for fitting and adjustment of other specified devices
CPT/HCPCS: 29075; 73130

== ENCOUNTER 2023-11-23 11:27 | Outpatient (AMB) | payer SELFPAY ==
--- NOTE | 2023-11-23 11:33 | MHC.OFFVIS ---
Intake Visit Reasons: PO: Rt RF CRPP 11/09/23 AR Intake Note: Harry is a 32 year old right hand dominant male who presents today for a post operative visit S/P Right hamate body fracture CRPP and right 4th metacarpal base FX CRPP w/ Dr Barajas DOS: 11/09/2023. He mentions still having numbness in his fingers since surgery and having a lot of pain. Allergies No Known Allergies Allergy (Verified 11/03/23 13:55) HPI HPI PO: Rt RF CRPP 11/09/23 AR: Details: 32-year-old right hand dominant male who presents in the office today 2 weeks status post right hamate body fracture CRPP, right 4th metacarpal base fracture closed reduction percutaneous pinning, and right ulnar nerve block, which was performed on 11/09/[address] Indu Barajas. While in the office today, the patient reports he continues to have numbness and severe pain in his right fingers since the surgery. [facility] Medical History Gangrene Penile cyst Kidney stone Surgical History History of nasal surgery Social History Are you a primary care transport nurse to a significant other at home: No Alcohol intake: never Patient Tobacco Use Status: Current everyday Tobacco user Cigarettes Per Day: 10 Substance Use Type: Marijuana Review of Systems Const All systems reviewed & are unremarkable except as noted in HPI and below Physical Exam Extrem Other: Right hand: Pin sites are clean, dry and intact. No surrounding erythema or drainage, No signs of infection. Able to flex and extend all the digits. Sensations intact; however, he reports mild numbness and tingling occasionally. Office Procedures Casting/Splints 09653-Fumj/Wrist Cast Application Procedure code (CPT) selection complete Assessment & Plan Assessment & Plan (1) Fracture of fourth metacarpal bone of right hand: Code(s): S62.304A - Unspecified fracture of fourth metacarpal bone, right hand, initial encounter for closed fracture Category: Medical (2) Fracture of hamate bone of wrist: Code(s): S62.143A - Displaced fracture of body of hamate [unciform] bone, unspecified wrist, initial encounter for closed fracture Category: Medical Plan Mr. Schwarz is a 32-year-old right hand dominant male who presents in the office today 2 weeks status post right hamate body fracture CRPP, right 4th metacarpal base fracture closed reduction percutaneous pinning, right ulnar nerve block which was performed on 11/09/[address] Indu Barajas. While in the office today, the patient reports he continues to have numbness and severe pain in his right fingers since the surgery. The pin sites were cleaned and dressed in the office today. He was placed into a short arm cast, custom-made. The patient was educated on cast maintenance with instructions to keep the cast clean, dry, and intact. However, should the cast become wet, dirty, loose, or there is a concern please call the office immediately to be scheduled for a cast change as there is a high risk of infection with the pins in place. He was encouraged to work on finger flexion and extension. He was restricted to no lifting, pushing, or pulling with the right hand. We can anticipate to remove the pins at next follow-up, should his x-rays reveal good bony interval healing. Follow-up will be in 2 weeks with repeat x-rays cast off with Nehemiah ACE. X-rays of the right hand which were obtained while in the office today and were reviewed by me, Diane Chahal PA-C, revealed: Intact pin sites with good alignment of the 4th metacarpal and right hamate. Orders: Orders XR hand RT min 3V Today M79.643 - Pain in unspecified hand Patient Instructions: Scribed by Patti Foster, medical technologist microbiology, for Diane Chahal PA-C on 11/23/23 at 11:47 pm EST. Coding Level of Care Code Global (39245) Diagnoses Fracture of fourth metacarpal bone of right hand S62.304A Fracture of hamate bone of wrist S62.143A CPT Codes Casting - CPT: 87768-Fjew/Wrist Cast Application ([id number])
== END 2023-11-23 12:26 | disposition home or self-care (01) ==
LOC: HO.HOS 11:27
PROVIDERS: Visit Provider Physician Assistant
DX: S62.304A Unspecified fracture of fourth metacarpal bone, right hand, initial encounter for closed fracture (principal); S62.141A Displaced fracture of body of hamate [unciform] bone, right wrist, initial encounter for closed fracture
CPT/HCPCS: 29075; 99024

== ENCOUNTER → 2023-11-23 11:29 | Outpatient (BNV) | payer SELFPAY | PROVIDERS: Visit Provider Radiology Diagnostic Radiology | DX: S62.304A Unspecified fracture of fourth metacarpal bone, right hand, initial encounter for closed fracture (principal) | CPT/HCPCS: 73130 ==

== ENCOUNTER 2023-12-07 08:27 | Outpatient (REF) | payer SELFPAY ==
--- NOTE | ~2023-12-07 | XR_ITS ---
EXAMINATION: XR HAND, RIGHT CLINICAL INFORMATION: Pain in the right hand. Attention 4th metacarpophalangeal joint and hamate COMPARISON: Multiple prior examinations most recent 11/23/2023 TECHNIQUE: PA, lateral, and oblique views of the right hand. FINDINGS: Postoperative changes with the K wires crossing the proximal portions of the 3rd through 5th metacarpophalangeal joint unchanged. Additional K wire crossing the hamate and capitate unchanged. Alignment unchanged. Fracture of the proximal 4th metacarpal less conspicuous compared to prior. No visible fractures noted about the hamate no change compared to prior. Remaining bone and soft tissues unremarkable. XR/XR hand RT min 3V IMPRESSION: 1. Postoperative changes with stable alignment. 2. Fracture of the proximal 4th metacarpal less conspicuous compared to prior. 3. No change in the appearance of the hamate. Electronically signed by: Haseeb Burk MD 12/12/2023 08:33 AM EDT
== END 2023-12-07 08:28 | disposition home or self-care (01) ==
LOC: HO.HOSX 08:27
DX: S62.143D Displaced fracture of body of hamate [unciform] bone, unspecified wrist, subsequent encounter for fracture with routine healing (principal); S62.304D Unspecified fracture of fourth metacarpal bone, right hand, subsequent encounter for fracture with routine healing
CPT/HCPCS: 73130; 99212

== ENCOUNTER 2023-12-07 10:15 | Outpatient (AMB) | payer SELFPAY ==
--- NOTE | 2023-12-07 10:27 | MHC.OFFVIS ---
Intake Visit Reasons: PO Rt RF CRPP 11/09/23 AR xrays/cast off Intake Note: Harry is a 32 year old right hand dominant male who presents today post operatively S/P Right hamate body fracture CRPP and right 4th metacarpal base fracture CRPP dOS: 11/09/23 w/ Dr Barajas. Patient reports when he is moving his thumb he feels a sharp pain through out his fingers. He also mentions that the green capped pin might have gone deeper in his hand. Allergies No Known Allergies Allergy (Verified 12/07/23 10:35) HPI HPI PO Rt RF CRPP 11/09/23 AR xrays/cast off: Details: Patient is a 32-year-old male who presents for postoperative evaluation status post right 4th metacarpal and right hamate CRPP, DOS 11/09/2023. Today, the patient reports that he is feeling better, but he does still experience some discomfort and has significant stiffness in his right hand. The patient does report that he does have occasional tingling in his fingers, but no numbness. Of note, the patient states he is concerned that the most distal pin in his right hand may have ?pushed in? due to being bumped while in the cast. No other acute complaints or concerns at this time. [facility] Medical History Gangrene Penile cyst Kidney stone Surgical History History of nasal surgery Social History Are you a primary daycare manager to a significant other at home: No Alcohol intake: never Patient Tobacco Use Status: Current everyday Tobacco user Cigarettes Per Day: 10 Substance Use Type: Marijuana Physical Exam Extrem Other: Right hand: Pin sites are clean, dry and intact. No surrounding erythema or drainage, No signs of infection. . Sensations intact; however, he reports mild numbness and tingling occasionally. Note, patient was unable to make a full closed fist at this time, due to stiffness Results Reviewed Results Reviewed: X-rays obtained in the office today and independently reviewed by me, Nehemiah Vargas PA-C, demonstrate well approximated fractures of the right hamate and right 4th metacarpal base with a minimal evidence of interval bony healing and all orthopedic hardware in place and in satisfactory clinical alignment. Assessment & Plan Assessment & Plan (1) Fracture of hamate bone of wrist: Code(s): S62.143A - Displaced fracture of body of hamate [unciform] bone, unspecified wrist, initial encounter for closed fracture Category: Medical (2) Fracture of fourth metacarpal bone of right hand: Code(s): S62.304A - Unspecified fracture of fourth metacarpal bone, right hand, initial encounter for closed fracture Category: Medical Plan 1. Right hamate fracture status post CRPP 2. Right 4th metacarpal base fracture status post CRPP DOS 11/09/2023 At this time, patient is informed that while his fractures are still in good alignment, there is minimal evidence of healing, so he will require the pins to be in for 1 additional week in addition to being placed back into a cast Patient understands this and is amenable to this plan Patient was advised to continue with a strict 2 lb weight limit in his right hand, but is advised to continue working on range of motion with the digits of the right hand in order to combat the stiffness that is forming in his right hand early Patient understands this and is amenable to this as well Patient will follow-up in 1 week with repeat x-rays, plan on pin removal at this time, sooner with any acute concerns Orders: Orders XR hand RT min 3V Today M79.641 - Pain in right hand Coding Level of Care Code Global (54724) Diagnoses Fracture of hamate bone of wrist S62.143A Fracture of fourth metacarpal bone of right hand S62.304A
== END 2023-12-07 12:30 | disposition home or self-care (01) ==
DX: S62.143A Displaced fracture of body of hamate [unciform] bone, unspecified wrist, initial encounter for closed fracture (principal); S62.304A Unspecified fracture of fourth metacarpal bone, right hand, initial encounter for closed fracture
CPT/HCPCS: 99024

== ENCOUNTER 2023-12-11 09:48 | Outpatient (AMB) | payer SELFPAY ==
--- NOTE | 2023-12-11 10:26 | MHC.OFFVIS ---
Intake Visit Reasons: PO Rt RF CRPP 11/09/23 AR xrays/cast change Intake Note: Harry is a 33 year old male that presents in the office today for a cast change, patient states that he feels like the pins are moving and causing irritation, patient would like to get xrays today. Allergies No Known Allergies Allergy (Verified 12/14/23 11:27) HPI HPI PO Rt RF CRPP 11/09/23 AR xrays/cast change: Details: Patient is a 33-year-old male who presents for follow-up evaluation and cast change status post right ring finger CRPP, DOS 11/09/[address] Barajas. The patient reports that he spilled some coffee on his cast, and called to have his cast change. The patient also reports that he is experiencing significant irritation around the pin sites, and he feels the pins are shifting and moving under the cast. Patient denies any numbness or tingling in the right hand. No other acute complaints or concerns at this time. [facility] Medical History Gangrene Penile cyst Kidney stone Surgical History History of nasal surgery Social History Are you a primary critical care unit manager to a significant other at home: No Alcohol intake: never Patient Tobacco Use Status: Current everyday Tobacco user Cigarettes Per Day: 10 Substance Use Type: Marijuana Review of Systems Const All systems reviewed & are unremarkable except as noted in HPI and below Physical Exam Extrem Other: Right hand: Pin sites are clean, dry and intact. very mild surrounding erythema, no drainage, No signs of infection. There is noted to be swelling around 1 of the pin sites, although it is unclear if this is edema or skin growth around the pin site. No numbness or tingling at this time Patient is able to get close to making a closed fist and extending all digits of the right hand fully and without difficulty Results Reviewed Results Reviewed: X-rays obtained in the office today and independently reviewed by me, Nehemiah Vargas PA-C, demonstrate well approximated and well healing fractures of the hamate and 4th metacarpal base. Pins in place and in satisfactory clinical alignment. Assessment & Plan Assessment & Plan (1) Fracture of fourth metacarpal bone of right hand: Code(s): S62.304A - Unspecified fracture of fourth metacarpal bone, right hand, initial encounter for closed fracture Category: Medical (2) Fracture of hamate bone of wrist: Code(s): S62.143A - Displaced fracture of body of hamate [unciform] bone, unspecified wrist, initial encounter for closed fracture Category: Medical Plan 1. Fracture of hamate of right hand status post CRPP Fracture of 4th metacarpal base of right hand status post CRPP DOS 11/09/2023 Patient appears to be recovering well postoperatively Patient is educated about the typical recovery course Due to length of time from surgery and evidence of healing on x-rays, I feel it is appropriate to pull the patient's pins in the office today Pins are pulled without issue Postprocedure x-rays are taken, revealing that there is still satisfactory clinical alignment of all fractures Out of an abundance of caution due to the mild erythema in 1 of the pin sites, a 7 day course of Augmentin is prescribed to prevent any potential infection from moving to the bone Patient is also educated that he should keep his previously scheduled appointment Patient was amenable to this plan Patient will follow-up next week for repeat x-rays and reassessment, sooner with any acute concerns Orders: Orders XR hand RT min 3V 12/11/23 M79.641 - Pain in right hand XR hand RT min 3V 12/11/23 M79.641 - Pain in right hand Medications: New amoxicillin-pot clavulanate 875-125 mg 1 tab PO BID 14 tabs 0RF 7 days Coding Level of Care Code Global (14530) Diagnoses Fracture of fourth metacarpal bone of right hand S62.304A Fracture of hamate bone of wrist S62.143A
== END 2023-12-11 11:35 | disposition home or self-care (01) ==
DX: S62.304A Unspecified fracture of fourth metacarpal bone, right hand, initial encounter for closed fracture (principal); S62.143A Displaced fracture of body of hamate [unciform] bone, unspecified wrist, initial encounter for closed fracture
CPT/HCPCS: 99024

== ENCOUNTER 2023-12-11 10:15 | Outpatient (REF) | payer SELFPAY ==
--- NOTE | ~2023-12-11 | XR_ITS ---
EXAMINATION: XR HAND, RIGHT CLINICAL INFORMATION: M79.641 - Pain in right hand COMPARISON: None available. TECHNIQUE: PA, oblique, and ball-catcher views of the right hand. FINDINGS: Proximal and distal K wires have been removed. K wire tracts seen traversing the third through fifth proximal metacarpals, as well as a second tract in the distal hamate and capitate. Vertical oriented fracture line in the proximal fourth metacarpal is still seen although there is bony callus abutting the margins and fracture line is less distinct. Similarly, the medial distal hamate fracture line also appears less distinct and healing. No new bony abnormality. Normal soft tissues. XR/XR hand RT min 3V IMPRESSION: 1. Removal of both K wires. 2. Interval healing of both fractures, remaining in anatomic alignment. Electronically signed by: Silver Mccallum MD 01/12/2024 12:53 PM [facility]
--- NOTE | ~2023-12-11 | XR_ITS ---
EXAMINATION: XR HAND, RIGHT CLINICAL INFORMATION: M79.641 - Pain in right hand COMPARISON: 12/07/2023, 11/23/2023. TECHNIQUE: PA, ball-catcher, and oblique views of the right hand. FINDINGS: Redemonstration of distal K wire traversing the proximal third through fifth metacarpal row , as well as a proximal K wire traversing the distal hamate, tip in the distal capitate. No complication evident. Vertical oriented fracture line in the proximal fourth metacarpal is still seen although there is subtle bony callus abutting the margins and fracture line is less distinct. Similarly, the medial distal hamate fracture line also appears less distinct and healing. No new findings seen. Soft tissue swelling appears similar. XR/XR hand RT min 3V IMPRESSION: 1. K wires remain in place in stable position. 2. Interval healing of fractures base of fourth metacarpal, and distal hamate. Electronically signed by: Silver Mccallum MD 01/12/2024 12:57 PM [facility]
== END 2023-12-11 10:16 | disposition home or self-care (01) ==
LOC: HO.HOSX 10:15
DX: S62.304D Unspecified fracture of fourth metacarpal bone, right hand, subsequent encounter for fracture with routine healing (principal); S62.143D Displaced fracture of body of hamate [unciform] bone, unspecified wrist, subsequent encounter for fracture with routine healing
CPT/HCPCS: 73130; 99212

== ENCOUNTER → 2023-12-11 10:37 | Outpatient (BNV) | payer SELFPAY | PROVIDERS: Visit Provider Radiology Diagnostic Radiology | DX: S62.304D Unspecified fracture of fourth metacarpal bone, right hand, subsequent encounter for fracture with routine healing (principal) | CPT/HCPCS: 73130 ==

== ENCOUNTER 2023-12-14 11:14 | Outpatient (AMB) | payer SELFPAY ==
--- NOTE | 2023-12-14 11:19 | MHC.OFFVIS ---
Vital Signs 12/14/23 11:27 Height 5 ft 11 in Handedness Right Intake Visit Reasons: PO Rt RF CRPP 11/09/23 AR xrays/cast off Intake Note: Harry is a 32 year old right hand dominant male who presents today post operatively S/P Right hamate body fracture CRPP and right 4th metacarpal base fracture CRPP DOS: 11/09/23 w/ Dr Barajas. At last visit he had his pins removed and prescribed antibiotics. He has not been able to picker/puller his prescription so he said he planned on getting that today. Patient reports he gets a shooting pain into his wrist with movement of his index finger and thumb however he finds this strange because the injury had nothing to do with these digits. He expresses when he makes a closed fist or picks something up he feels tightness in the fingers and wrist. He says last night he squeezed something hard and white out of his pin site. Allergies No Known Allergies Allergy (Verified 12/14/23 11:27) HPI HPI PO Rt RF CRPP 11/09/23 AR xrays/cast off: Details: Patient is a 33-year-old male who presents for wound check status post right ring finger and hamate CRPP, DOS 11/09/2023 with pins removed at last visit. Today, the patient reports that he is feeling well, and that there is still a little bit of redness and swelling about the pin sites, but nothing severe. The patient does state that he did not picker/puller the antibiotics sent at visit last week, as he was ?too busy this weekend?. Of note, the patient states that he squeezed the pin site over the weekend, and something ?hard and white? came out, although the patient states that this was not pus and did not appear infectious. The patient states that he is not experiencing much pain at baseline since pin removal. Patient denies any numbness or tingling of the right hand. No other acute complaints or concerns at this time. [facility] Medical History Gangrene Penile cyst Kidney stone Surgical History History of nasal surgery Social History Are you a primary post acute care registered nurse to a significant other at home: No Alcohol intake: never Patient Tobacco Use Status: Current everyday Tobacco user Cigarettes Per Day: 10 Substance Use Type: Marijuana Review of Systems Const All systems reviewed & are unremarkable except as noted in HPI and below Physical Exam Extrem Other: Right hand: Pin sites are clean, dry and intact. No surrounding erythema or drainage, No signs of infection. No numbness or tingling at this time Patient is able to get close to making a closed fist and extending all digits of the right hand fully and without difficulty Assessment & Plan Assessment & Plan (1) Fracture of hamate bone of wrist: Code(s): S62.143A - Displaced fracture of body of hamate [unciform] bone, unspecified wrist, initial encounter for closed fracture Category: Medical (2) Fracture of fourth metacarpal bone of right hand: Code(s): S62.304A - Unspecified fracture of fourth metacarpal bone, right hand, initial encounter for closed fracture Category: Medical Plan 1. Right hamate fracture status post CRPP 2. Right 4th metacarpal base fracture status post CRPP DOS 11/09/2023 Pins pulled at last visit, patient appears to be recovering well after this However, due to consistent small concern with mild erythema and edema surrounding 1 of the pin sites, he should still picker/puller his course of antibiotics and complete this as prescribed at last visit Patient understands this and is amenable to this plan Patient was advised to continue with a strict 2 lb weight limit in his right hand, but is advised to continue working on range of motion with the digits of the right hand in order to combat the stiffness that is forming in his right hand early Patient understands this and is amenable to this as well Patient will follow-up in 1 week with repeat x-rays, sooner with any acute concerns Coding Level of Care Code Global (50324) Diagnoses Fracture of hamate bone of wrist S62.143A Fracture of fourth metacarpal bone of right hand S62.304A
== END 2023-12-14 11:38 | disposition home or self-care (01) ==
DX: S62.143A Displaced fracture of body of hamate [unciform] bone, unspecified wrist, initial encounter for closed fracture (principal); S62.304A Unspecified fracture of fourth metacarpal bone, right hand, initial encounter for closed fracture
CPT/HCPCS: 99024

== ENCOUNTER → 2023-12-14 11:14 | Outpatient (BNVA) | payer SELFPAY | DX: S62.143D Displaced fracture of body of hamate [unciform] bone, unspecified wrist, subsequent encounter for fracture with routine healing (principal); S62.304D Unspecified fracture of fourth metacarpal bone, right hand, subsequent encounter for fracture with routine healing | CPT/HCPCS: 99212 ==

== ENCOUNTER 2023-12-25 08:28 | Outpatient (REF) | payer SELFPAY ==
--- NOTE | ~2023-12-25 | XR_ITS ---
EXAMINATION: XR HAND, RIGHT CLINICAL INFORMATION: M79.641 - Pain in right hand ; follow-up fractures COMPARISON: None available. TECHNIQUE: PA, oblique, and ball-catcher views of the right hand. FINDINGS: K wire tracts again seen traversing the third through fifth proximal metacarpals, as well as a second tract in the distal hamate and capitate. Vertical oriented fracture line in the proximal fourth metacarpal is only seen on the oblique projection, and there has been definite interval healing. Similarly, the medial distal hamate fracture line is still present on the oblique projection although there is definite healing involved. There is stable anatomic alignment of the bony structures. No new bony abnormality. Normal soft tissues. XR/XR hand RT min 3V IMPRESSION: 1. K wire tracts in place. 2. Healing fractures proximal fourth metacarpal, and distal hamate. Electronically signed by: Silver Mccallum MD 01/12/2024 01:02 PM [facility]
== END 2023-12-25 08:29 | disposition home or self-care (01) ==
LOC: HO.HOSX 08:28
DX: M79.641 Pain in right hand (principal); S62.143A Displaced fracture of body of hamate [unciform] bone, unspecified wrist, initial encounter for closed fracture; S62.304A Unspecified fracture of fourth metacarpal bone, right hand, initial encounter for closed fracture
CPT/HCPCS: 73130; 99212

== ENCOUNTER 2023-12-25 09:01 | Outpatient (AMB) | payer SELFPAY ==
--- NOTE | 2023-12-25 09:06 | A.OFFVIS_ITS ---
Intake Visit Reasons: PO Rt RF CRPP 11/09/23 AR xrays/cast off Intake Note: Harry is a 32 year old right hand dominant male who presents today post operatively S/P Right hamate body fracture CRPP and right 4th metacarpal base fracture CRPP DOS: 11/09/23 w/ Dr Barajas. Pt states he has pain occasionally if he bumps or turns his hand a certain way. Pt states he didn't take the course of antibiotics due to money being tight . Allergies No Known Allergies Allergy (Verified 12/25/23 09:06) HPI HPI PO Rt RF CRPP 11/09/23 AR xrays/cast off: Details: Patient is a 33-year-old male who presents for postoperative evaluation status post right ring finger and hamate CRPP, DOS 11/09/2023. Today, the patient reports that he is feeling well, and is only experiencing some discomfort with m ovement and palpation. Patient reports that he did not clam picker the antibiotics prescribed him at previous visit, as ?money was tight?. Patient reports that he has been wearing the Velcro wrist splint with daytime activities. No other acute complaints or concerns at this time. [facility] Medical History Gangrene Penile cyst Kidney stone Surgical History History of nasal surgery Social History Are you a primary critical care technician to a significant other at home: No Alcohol intake: never Patient Tobacco Use Status: Current everyday Tobacco user Cigarettes Per Day: 10 Substance Use Type: Marijuana Review of Systems Const All systems reviewed & are unremarkable except as noted in HPI and below Physical Exam Extrem Other: Right hand: Pin sites are clean, dry and intact. Pins removed at last visit No surrounding erythema or drainage, No signs of infection. No numbness or tingling at this time Mild tenderness to palpation at the level of both the 4th metacarpal base f racture and hamate fracture Patient is able to get close to making a closed fist and extending all digits of the right hand fully and without difficulty Results Reviewed Results Reviewed: X-rays obtained in the office today and independently reviewed by me, Nehemiah Vargas PA-C, demonstrate well approximated fracture of the 4th metacarpal base and the hamate of the right hand and wrist, however there does not appear to be as much interval healing of the 4th metacarpal base fracture as to be expected 6 weeks postoperatively. Assessment & Plan Assessment & Plan (1) Fracture of hamate bone of wrist: Code(s): S62.143A - Displaced fracture of body of hamate [unciform] bone, unspecified wrist, initial encounter for closed fracture Category: Medical (2) Fracture of fourth metacarpal bone of right hand: Code(s): S62.304A - Unspecified fracture of fourth metacarpal bone, right hand, initial encounter for closed fracture Category: Medical Plan 1. Fracture of hamate and 4th metacarpal base of right wrist status post CRPP DOS 11/09/2023 At this time, patient is informed that there is not as much interval bony healing as should be evident on x-rays Patient is educated that this is likely due to his smoking, and may simply represent delayed healing However, I think it was appropriate that the patient sees Dr. Barajas for repeat assessment due to the potential risk of malunion or nonunion Patient was amenable to this plan Patient will follow-up in 1-[address] Barajas with repeat x-rays, sooner any acute concerns Orders: Orders XR hand RT min 3V Today M79.641 - Pain in right hand Coding Level of Care Code Global (56194) Diagnoses Fracture of hamate bone of wrist S62.143A Fracture of fourth metacarpal bone of right hand S62.304A
== END 2023-12-25 09:28 | disposition home or self-care (01) ==
DX: S62.143A Displaced fracture of body of hamate [unciform] bone, unspecified wrist, initial encounter for closed fracture (principal); S62.304A Unspecified fracture of fourth metacarpal bone, right hand, initial encounter for closed fracture
CPT/HCPCS: 99024

== ENCOUNTER → 2023-12-25 09:03 | Outpatient (BNV) | payer SELFPAY | PROVIDERS: Visit Provider Radiology Diagnostic Radiology | DX: S62.304D Unspecified fracture of fourth metacarpal bone, right hand, subsequent encounter for fracture with routine healing (principal) | CPT/HCPCS: 73130 ==

== ENCOUNTER 2024-01-06 10:31 | Outpatient (AMB) | payer SELFPAY ==
[2024-01-06 10:32] VITALS: BMI 40.2
--- NOTE | 2024-01-06 10:32 | A.OFFVIS_ITS ---
Vital Signs 01/06/24 10:32 Height 5 ft 11 in Weight 288 lb BMI 40.2 Intake Visit Reasons: OV-concern of nonunion/malunion Intake Note: Harry is a 33 year old right hand dominant male who presents today post operatively S/P right hamate body fracture CRPP and right 4th metacarpal base fracture CRPP DOS: 11/09/[address] Barajas. Patient seen by CLAUDE Brumfield who would like imaging re-evaluated. Patient reports pain on the dorsal aspect of the right hand when gripping and squeezing. Patient continues to wear a velcro wrist brace. Allergies No Known Allergies Allergy (Verified 01/06/24 10:33) HPI HPI OV-concern of nonunion/malunion: Details: Harry is a 33 year old right hand dominant man who presents for an evaluation of his left hand fracture, S/P hamate body fracture CRPP & 4th metacarpal base fracture CRPP, DOS: 11/09/23. He has been following with CLAUDE Cerna, who was concerned about possible delayed healing and risk of possible non-union. The patient reports that his right hand is feeling quite a bit better. He does get some achiness with gripping or squeezing activities. He says he also experiences tightness in his hand since he got out of the cast, which he finds limiting. 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 [facility] Medical History Gangrene Penile cyst Kidney stone Surgical History History of nasal surgery Social History Are you a primary landcare officer to a significant other at home: No Alcohol intake: never Patient Tobacco Use Status: Current everyday Tobacco user Cigarettes Per Day: 10 Substance Use Type: Marijuana Review of Systems Const All systems reviewed & are unremarkable except as noted in HPI and below Physical Exam Vital Signs: BMI result Body Mass Index 40.2 Const General: cooperative, healthy appearing and no acute distress Orientation/consciousness: patient oriented x3 HEENT Head: Yes normocephalic and Yes atraumatic Eyes EOM: EOMs intact bilaterally Resp Effort & Inspection: normal respiratory effort and able to speak in complete sentences Cardio Jugular venous distension: no JVD Skin General skin exam: turgor normal Rashes: no rashes Neuro General: patient oriented x3 Extrem Other: Evaluation of Right Upper Extremity: The patient is alert, oriented, and in no acute distress Neuro: Median, Ulnar, Radial nerves motor and sensory intact and sensation is normal to the tips of all digits Vascular: Cap refill brisk ROM: He can make a fist and extend all his digits No locking or catching He has some mild tenderness over the ring finger a1 megan Now not particularly tender over the 4th and 5th CMC joints and the bases of the 4th and 5th metacarpals. Smooth wrist range of motion Pin sites are well healed with no evidence of infection Radiographs: 3 views of the right hand from 12/25/23 were reviewed by me today in clinic. They show a hamate body fracture and a 4th metacarpal base fracture with satisfactory fracture alignment, position of all implants, and with good evidence of interval bony healing. Psych Appearance: grossly normal Affect: normal affect Attitude: cooperative Assessment & Plan Assessment & Plan (1) Fracture of hamate bone of wrist: Code(s): S62.143A - Displaced fracture of body of hamate [unciform] bone, unspecified wrist, initial encounter for closed fracture Category: Medical (2) Fracture of fourth metacarpal bone of right hand: Code(s): S62.304A - Unspecified fracture of fourth metacarpal bone, right hand, initial encounter for closed fracture Category: Medical Plan Assessment & Plan: 1. Right hamate body fracture, S/P CRPP DOS: 11/09/23 2. Right 4th metacarpal body fracture, S/P CRPP DOS: 11/09/23 The patient appears to be doing well post-operatively, and I do not see any evidence of nonunion. He has some mild discomfort with gripping activities, but is otherwise doing well He should discontinue his wrist splint at this time He will work on ROM exercises at home, and slowly work on increasing his weight limit as tolerated over the next 4 weeks. I ordered OT hand therapy to work on strengthening, stretching, and normalizing function in preparation for returning to work at full duty in 4 weeks. 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 He is happy with this plan as he feels he needs to get back to work. He will follow up in 4 weeks to see how he is doing, and hopefully return him to full duty.. This can be done with CLAUDE Cerna or myself. Scribed for Indu Barajas MD by Sorin Bean, spanish medical interpreter, on 01/06/24 at 11:15 AM, EST. Orders: Orders OT Evaluation and Treatment Today S62.143A - Displaced fracture of body of hamate [unciform] bone, unspecified wrist, initial encounter for closed fracture, S62.304A - Unspecified fracture of fourth metacarpal bone, right hand, initial encounter for closed fracture Coding Level of Care Code Global (55078) Diagnoses Fracture of hamate bone of wrist S62.143A Fracture of fourth metacarpal bone of right hand S62.304A
== END 2024-01-06 11:29 | disposition home or self-care (01) ==
PROVIDERS: Visit Provider Orthopaedic Surgery
DX: S62.143A Displaced fracture of body of hamate [unciform] bone, unspecified wrist, initial encounter for closed fracture (principal); S62.304A Unspecified fracture of fourth metacarpal bone, right hand, initial encounter for closed fracture
CPT/HCPCS: 99024

== ENCOUNTER → 2024-01-06 10:31 | Outpatient (BNVA) | payer SELFPAY | PROVIDERS: Visit Provider Orthopaedic Surgery | DX: S62.141D Displaced fracture of body of hamate [unciform] bone, right wrist, subsequent encounter for fracture with routine healing (principal); S62.304D Unspecified fracture of fourth metacarpal bone, right hand, subsequent encounter for fracture with routine healing | CPT/HCPCS: 99212 ==

== ENCOUNTER 2024-11-09 10:15 | Emergency (ER) | payer MEDICAID, SELFPAY ==
[2024-11-09 10:16] VITALS: BP 151/96; PULSE 70; RESP 20; TEMP 37.2; O2SAT 100; BMI 36.9
--- NOTE | 2024-11-09 10:17 | ED_ITS ---
HPI - General Adult General Chief complaint: Dental/Oral Stated complaint: tooth pain Time Seen by Provider: 11/09/24 10:29 Source: patient Mode of arrival: ambulatory Limitations: no limitations History of Present Illness ED Provider: Selena Enriquez PA-C HPI narrative: This is a 33 year old male that presents with right sided facial swelling. Thursday11/07/2024 he had pain when bumped by equipment coming off of his work truck. Thursday11/08/2024 he noticed the swelling started. He states that normally he has pain in his teeth and he knows he chipped or lost one when the pain stops. He is having pain with certain movements of his face. He denies chest pain, palpitations or shortness of breath. He denies fever, chills or sweats. He denies nausea or vomiting. He states he has had similar presentation prior but he has never had this much inflammation. He states that he has noticed increased saliva in his mouth. Pain is worse to the right of his nose. Related Data Previous Rx's ?Medication ?Instructions ?Recorded amoxicillin 875 mg-potassium 1 tab PO BID 10 days #20 tabs 11/09/24 clavulanate 125 mg tablet Allergies Allergy/AdvReac Type Severity Reaction Status Date / Time No Known Allergies Allergy Verified 11/09/24 10:19 Review of Systems 2 Constitutional: Constitutional: Reports as per HPI Eyes: Eyes: Reports as per HPI ENT: Reports as per HPI Cardiovascular: Cardiovascular: Reports as per HPI Respiratory: Respiratory: Reports as per HPI Gastrointestinal: Gastrointestinal: Reports as per HPI Genitourinary: Genitourinary: Reports as per HPI Musculoskeletal: Musculoskeletal: Reports as per HPI Integumentary/Breasts: Skin/Breast: Reports as per HPI Neurologic: Reports as per HPI Psychiatric: Psychiatric: Reports as per HPI Endocrine: Endocrine: Reports as per HPI Hematologic/Lymphatic: Hematologic/Lymphatic: Reports as per HPI Allergic/Immunologic: Allergic/Immunologic: Reports as per HPI PMF Past Medical History Attestation statement: The following information was validated with the patient. Source: old records reviewed and nursing notes reviewed Medical History Gangrene Penile cyst Kidney stone Surgical History History of nasal surgery Social History Social History Are you a primary care clinician to a significant other at home: No Alcohol intake: never Patient Tobacco Use Status: Current everyday Tobacco user Cigarettes Per Day: 10 Smoked in Last 30 Days: No Use of substances other than those prescribed or required for medical reasons: No Substance Use Type: Marijuana Advance Directives: No Advance Directives Information Provided: Yes Physical Exam ED Vital Signs: Vital Signs - 24 hr 11/09/24 10:16 11/09/24 10:29 11/09/24 11:12 Temperature 98.9 F 98.9 F 0 F L Pulse Rate 70 70 59 Respiratory Rate 20 20 18 Blood Pressure 151/96 H 151/96 H 102/62 Pulse Oximetry 100 100 97 Oxygen Delivery Method Room Air Room Air Room Air BMI result Body Mass Index 36.9 Const General: cooperative, alert and awake Nutritional Appearance: well nourished Orientation/consciousness: patient oriented x3 HENMT Head: Yes other (Tenderness to palpation right of nose and right sided facial edema. ) Ears: EAC's normal and TM abnormal (Bulging of right sided TM without exudate.) General nose exam: Normal external nose present, no nasal discharge noted and no epistaxis Face and sinus: Yes edema (Right side. ) and Yes sinus tenderness Mouth: Normal oral and palatal mucosa present, no drooling and no muffled voice Teeth and gingiva: abnormal tooth and associated gingiva upper right and poor dentition Eyes General: appearance normal, both eyes and all related structures Periorbital: periorbital findings abnormal (Inferior periorbital edema of inferior right eye. ) Eyelids: Yes eyelids normal Conjunctivae: conjunctivae normal Pupils: Equal, round and reactive pupils present EOM: EOMs intact bilaterally Neck Neck: Yes normal visual inspection Resp Effort & Inspection: normal respiratory effort Auscultation: clear to auscultation bilaterally Cardio Rate: regular rate Rhythm: regular rhythm Heart sounds: S1 normal heart sound present and S2 normal heart sound present Skin Lesions: no lesions Rashes: no rashes Trauma: no lacerations or abrasions Wounds: no wounds Neuro General: patient oriented x3 Cranial nerves: Yes Equal, round and reactive pupils present Cognition (Neuro): normal cognition Extrem General: Yes normal to inspection, Yes full ROM and Yes capillary refill normal Psych Appearance: grossly normal Mental Status: mental status grossly normal Affect: normal affect Attitude: cooperative Thought process: Normal thought process present Thought content: Normal thought content present Insight: Good insight present (Psych) Course Course Course Narrative: This is a rapid medical exam performed by Dorene Colón NP: Additional HPI, ROS, PE not included below will be deferred to primary provider. Patient is a 33-year-old male presenting to the ED with complaint of facial swelling since yesterday. States he fractured a tooth to R upper jaw a few days ago. Unsure fevers, has been taking Tylenol and ibuprofen ATC. Has not called his dentist yet. Plan: labs, will defer imaging to primary provider Medical Decision Making Medical Decision Making MDM Narrative: Patient is a 33 year old assigned male at with a history of poor dentition and fear of needles presenting to the emergency department today with right upper dental pain and right sided facial swelling. Patient's physical exam showed significantly poor dentition with right sided facial swelling - but no erythema. Patient's blood work showed an elevated CRP of 1.43 but otherwise unremarkable. I explained my physical exam findings as well as all test results to the patient. I answered all questions asked by the patient. I spoke with the patient about having a CT scan of his face to rule out definitively an abscess extending into the sinus however, the patient declined it at this time - stating that he needs to get to work and he is on probation there. I had an extensive conversation with the patient and through shared decision making, we determined the patient would discharge home with PO Augmentin, follow up with a dentist, and have strict ED return precautions. I stressed the importance of the patient taking his medication as directed (either prescribed or as the over the counter packaging recommends). I stressed the importance of the patient following up with his primary care provider and a dentist. I stressed the importance of the patient returning to the emergency department immediately if his symptoms were to worsen or if he were to develop any dizziness, shortness of breath, difficulty breathing, chest pain, blurry vision, loss of vision, nausea, vomiting, abdominal pain, fever, chills, back pain, or any other complaints. Patient verbalized agreement and understanding with this treatment plan and discharge. Differential Diagnosis Differential Diagnoses: The differential diagnosis associated with the presentation includes Dental abscess Facial abscess Dental infection Dental pain Admission/Observation Consideration of admission/observation: Escalation of care including admission/observation considered Patient would have been admitted to the hospital had his work up had any findings where hospital admission was appropriate and his clinical presentation warranted hospital admission. Lab Data [facility] Lab Attestation statement: I reviewed the patient's lab results. My interpretation of these results are in the MDM Rationale portion of this note. 11/09/24 10:51 11/09/24 10:51 Labs: Lab Results 11/09/24 Range/Units 10:51 WBC 9.7 (4.8-10.8) X10*3/uL RBC 4.75 (4.60-5.80) X10*6/uL Hgb 15.0 (14.0-18.0) g/dl Hct 43.0 (42.0-52.0) % MCV 90.5 (80.0-98.0) fL MCH 31.6 (27.0-33.0) pg MCHC 34.9 (31.0-36.0) g/dl RDW 12.7 (11.0-16.0) % Plt Count 225 (160-400) X10*3/uL MPV 10.2 (9.4-12.4) fL Immature Gran % (Auto) 0.2 (0.0-0.4) % Neut % (Auto) 72.4 (45-73) % Lymph % (Auto) 17.3 L (20-40) % [place] % (Auto) 8.7 (2-11) % Eos % (Auto) 0.9 (0-4) % Baso % (Auto) 0.5 (0-2) % Lymph # (Auto) 1.7 (1.2-4.9) X10*3/uL [place] # (Auto) 0.8 (0.1-1.2) X10*3/uL Eos # (Auto) 0.1 (0.0-0.4) X10*3/uL Baso # (Auto) 0.1 (0.0-0.2) X10*3/uL Abs Immat Gran (auto) 0.02 (0.00-0.03) X10*3/uL Absolute Neuts (auto) 7.0 (2.0-8.3) x10*3/uL Absolute Nucleated RBC 0.000 (0.0-0.012) X10*3/uL Nucleated RBC % (auto) 0.0 (0.0-0.2) /100WBC ESR 9 (0-15) MM/HR Sodium 143 (135-145) mmol/L Potassium 4.5 (3.3-5.1) mmol/L Chloride 109 H (96-108) mmol/L Carbon Dioxide 27 (22-29) mmol/L Anion Gap 12 (12-20) BUN 9 (9-16) mg/dL Creatinine 0.91 (0.5-1.4) mg/dL Estim Creat Clear Calc 143.4 Estimated GFR > 60 Random Glucose 100 (60-115) mg/dL Calcium 9.1 (8.4-10.2) mg/dL Total Bilirubin 0.9 (0.0-1.0) mg/dL AST 29 (5-37) U/L ALT 40 (0-40) U/L Alkaline Phosphatase 64 (39-117) U/L C-Reactive Protein 1.43 H (< or = 0.50) mg/dL Total Protein 7.1 (6.5-8.0) g/dL Albumin 4.2 (3.5-5.0) g/dL Tests considered The following testing was considered but not selected: I considered obtaining a CT scan of the maxilofacial bones with contrast to evaluate for a possible oral + sinus abscess and the patient declined, as noted in the MDM Rationale portion of this note. Prescription Management I considered prescription management with: Antibiotic (patient prescribed an antibiotic for his dental infection) Discharge Plan Discharge Clinical Impression: Dental infection Patient Disposition: Home, Self-Care Instructions: Dental Abscess (ED) Additional Instructions: It is crucial you take your antibiotic as prescribed. Follow up with a dentist. IF you are prescribed home medications and/or you are taking over the counter medications at home - it is very important you continue to do so as prescribed / directed unless told otherwise. Follow up with a primary care provider. Return to the emergency department immediately if your symptoms worsen or if you develop any numbness, tingling, dizziness, shortness of breath, difficulty breathing, chest pain, blurry vision, loss of vision, nausea, vomiting, abdominal pain, fever, chills, back pain, or any other complaints. L If you do not have a primary care provider - call any of the below numbers to establish and follow up with a primary care provider. [facility] ([place]) [phone] [facility] [place], [address] [facility] ([address] [place]) [phone] [address] [facility], [address] [place], [address] [facility] ([address] [place]) [phone] [address] [facility], [address] [place], [address] [facility] ([place]) [phone] [place] [address], [address] [facility], [address] [facility] Family Medicine [phone] [address] [facility], [address] Call or visit any of the clinics below to establish with a dentist: [facility] [address] [place] [address] [address] [place] [address] [address] [facility] [address] [place] [address] [address] [place] [address] [address] [facility] [address] [place] [address] [address] [facility] [address] [place] [address] [address] [facility] [address] [place] [address] [address] [facility] [address] [place] [address] [address] [facility] [address] [place] [address] [address] [place] [address] [address] [place] [address] [address] [facility] [address] [place] [address] [facility] [address] [place] [address] [facility] [address] [facility] [address] [place] [address] [facility] [address] [place] [address] [facility] [address] [place] [address] [facility] [address] [place] [address] [facility] [address] [facility] [place], [address] [facility] [address] [place] [address] [address] [place] [address] [address] [place] [address] (One number for all locations) [facility] [address] [place] [address] [facility] [address] [place] [address] [facility] [address] [place] [address] Please see the information below about our Patient Portal. If you are not yet enrolled in the [facility] Patient Portal, you will receive an enrollment email invitation following your visit to any [facility] care setting. You may also self-enroll in the Patient Portal by visiting our website: [email or web address] The following information is required to access the Patient Portal: - Your [facility] Medical Record Number - Your personal home email address (must match what is in your electronic medical record, Registration staff can assist with this) - Name - Date of Capabilities of the Patient Portal: - Message some providers - View upcoming appointments - Access your health summary, medical history, and visit history - View current conditions and allergies - View procedure and lab results - View your medications, including guidelines, side effects, and precautions - Complete pre-appointment questionnaires requested by your provider - Ready summary reports of your office visits and procedures To access the Patient Portal Mobile Igor, follow these directions: - Search Gojee in the Igor Store or SafeTool Store - Download the Igor - Search for [facility] - Enter your login/password Prescriptions: New amoxicillin-pot clavulanate 875-125 mg tablet 1 tab PO BID 10 Days Qty: 20 0RF Interventions: ED Discharge Assessment Last Done: 11/09/24 11:12 Discharge Date/Time: 11/09/24 11:14 Print Language: Taiwanese
[2024-11-09 10:29] VITALS: BP 151/96; PULSE 70; RESP 20; TEMP 37.2; O2SAT 100
--- NOTE | 2024-11-09 10:33 | PC.NURSE ---
33 M presents to ED with 2 R upper teeth chipped yesterday, was on a truck from work, went over a bump and his teeth clenched, tooth chipped. A+Ox4, anxious, cooperative. Pt c/o 10 tooth pain. rr even and unlabored, denies CP or SOB. RR even and unlabored.
[2024-11-09 11:01] LABS: MANUAL DIFF FLAG NO
[2024-11-09 11:07] LABS: Hematocrit 43.0 % (42.0-52.0); Hemoglobin 15.0 g/dl (14.0-18.0); Imm Gran Abs Auto 0.02 X10*3/uL (0.00-0.03); Imm Gran Pct Auto 0.2 % (0.0-0.4); Lymphocytes Absolute Auto 1.7 X10*3/uL (1.2-4.9); Mean Corpuscular HGB Conc 34.9 g/dl (31.0-36.0); Mean Corpuscular Hemoglobin 31.6 pg (27.0-33.0); Mean Corpuscular Volume 90.5 fL (80.0-98.0); NRBC Abs Auto 0.000 X10*3/uL (0.0-0.012); NRBC Pct Auto 0.0 /100WBC (0.0-0.2); Platelet Count 225 X10*3/uL (160-400); Red Blood Count 4.75 X10*6/uL (4.60-5.80); White Blood Count 9.7 X10*3/uL (4.8-10.8)
[2024-11-09 11:12] VITALS: BP 102/62; PULSE 59; RESP 18; TEMP -17.7; TEMP 0; O2SAT 97
[2024-11-09 11:18] LABS: Alanine Aminotransferase 40 U/L (0-40); Albumin Level 4.2 g/dL (3.5-5.0); Alkaline Phosphatase 64 U/L (39-117); Anion Gap 12 (12-20); Aspartate Amino Transferase 29 U/L (5-37); Blood Urea Nitrogen 9 mg/dL (9-16); Calcium 9.1 mg/dL (8.4-10.2); Carbon Dioxide 27 mmol/L (22-29); Chloride 109 mmol/L (96-108); Creatinine Clr Calc Pharmacy 143.4; Estimated Glomerular Filt Rate > 60; Potassium 4.5 mmol/L (3.3-5.1); Sodium 143 mmol/L (135-145); Total Protein 7.1 g/dL (6.5-8.0)
--- OUTSIDE RECORDS SUMMARY | 2024-11-09 14:13 | XMS_ITS | Clinical Summary ---
Author Organization [facility] Address [address] [place] [phone] Phone Care Team Providers Care Manager Database Administration Name Role Phone Unavailable Primary Care Provider Unavailabl e Immunizations Immunization Administration Dates Next Due DTP 07/02/1995,11/21/1993,07/22/1991 ,05/26/1991,02/18/1991 Hep B, ped/adol 06/12/1998,10/13/1996,07/02/1995 Hib (PRP-T) 05/15/1992,07/22/1991,05/26/1991 ,02/18/1991 IPV 11/21/1993,05/26/1991,02/18/1991 MMR 07/02/1995,05/15/1992 OPV 07/02/1995 Varicella 11/22/2002 Social History Tobacco Use Types Packs/Day Years Used Date Smoking Tobacco: Never Assessed Sex and Gender Information Value Date Recorded Sex Assigned at Not on file Legal Sex Male 4:29 PM EDT Gender Identity Not on file Sexual Orientation Not on file Last Filed Vital Signs Vital Sign Reading Time Taken Comments Blood Pressure 118/70 07/19/2009 12:00 AM EDT Pulse 68 07/19/2009 12:00 AM EDT Temperature 36.5 C (97.7 F) 07/19/2009 12:00 AM EDT Respiratory Rate - - Oxygen Saturation - - Inhaled Oxygen Concentration - - Weight 122 kg (270 lb) 07/19/2009 12:00 AM EDT Height 180.3 cm (5' 11 ) 07/19/2009 12:00 AM EDT Body Mass Index 37.66 07/19/2009 12:00 AM EDT Plan of Treatment Health Maintenance Due Date Last Done Comments DTaP,Tdap,and Td Vaccines (6 - Tdap) 2001 07/02/1995, 11/21/1993, 07/22/1991, Additional history exists Varicella Vaccines (2 of 2 - 2-dose childhood series) 02/14/2003 11/22/2002 HPV Vaccines (1 - 3-dose SCDM series) 2017 Influenza Vaccines (#1) 2024 COVID-19 Vaccine ( season) 2024 HIB Vaccines Completed 05/15/1992, 06/1991, 05/26/1991, Additional history exists IPV Vaccines Completed 07/02/1995, 07/1993, 05/26/1991, Additional history exists MMR Vaccines Completed 07/02/1995, 05/15/1992 Hepatitis B Vaccines Completed 06/12/1998, 10/13/1996, 07/02/1995 Hepatitis A Vaccines Aged Out No long er eligible based on patient's age to complete this topic Men B Vaccine Aged Out No longer elig ible based on patient's age to complete this topic Meningococcal Vaccine Aged Out No aracelis anthony eligible based on patient's age to complete this topic Pneumococcal Vaccine Aged Out No long er eligible based on patient's age to complete this topic
== END 2024-11-09 11:14 | disposition home or self-care (01) ==
PROVIDERS: Registered Nurse Emergency; Emergency Provider Emergency Medicine
DX: K04.7 Periapical abscess without sinus (principal); K08.89 Other specified disorders of teeth and supporting structures
CPT/HCPCS: 36415; 80053; 85025; 85652; 86140; 99283; 99284

== ENCOUNTER 2024-11-09 16:11 | Emergency (ER) | payer MEDICAID, SELFPAY ==
--- NOTE | ~2024-11-09 | CT_ITS ---
CLINICAL HISTORY: right facial swelling CT maxillofacial with contrast Comparison: None provided Findings: No acute fractures. No dislocations. Temporomandibular joints are intact. There is mucosal thickening of the bilateral maxillary sinus. Soft tissue fat stranding of the right side of the face. No abnormal fluid collection. There are lucencies of the root of multiple teeth. Orbital contents within normal limits. Visualized intracranial contents are within normal limits. No foreign bodies. IMPRESSION: Cellulitis of the right side of the face with no evidence of soft tissue abscess. The source of infection is likely to be dental. Dental consult is recommended. This document has been electronically signed by: Tyler Estrada MD on 11/09/2024 19:11:51
[2024-11-09 16:12] VITALS: BP 142/76; PULSE 78; RESP 18; TEMP 36.6; O2SAT 99; BMI 42.1
--- NOTE | 2024-11-09 16:12 | ED_ITS ---
HPI - General Adult General Chief complaint: Dental/Oral Stated complaint: Facial swelling Time Seen by Provider: 11/09/24 17:34 History of Present Illness ED Provider: Tadeo GOODE narrative: The patient is a 33-year-old male with a history of poor dentition. He says that 2 days ago he felt a breakage of tooth #7. The next day he started having pain at the tooth and in the soft tissues above the tooth in the region of his right cheek. Today the pain and swelling was worse and he came to the emergency room this morning. At that emergency room visit he was advised to have a CT scan of the face but he chose to leave. A prescription for Augmentin was sent to his pharmacy. 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 Since then he has had some worsening swelling and discomfort and he returned to the emergency room because of this. No definite fever. Related Data Previous Rx's ?Medication ?Instructions ?Recorded acetaminophen 500 mg capsule 1,000 mg (2 x 500 mg) PO Q8H PRN 11/09/24 fever or pain #14 caps clindamycin HCl 300 mg capsule 600 mg (2 x 300 mg) PO TID 10 days 11/09/24 (Cleocin HCl) #60 caps ibuprofen 400 mg tablet 400 mg PO Q6H PRN pain #14 t abs 11/09/24 oxycodone 5 mg tablet 5 mg PO Q6H PRN pain #12 tab s 11/09/24 Allergies Allergy/AdvReac Type Severity Reaction Status Date / Time No Known Allergies Allergy Verified 11/09/24 16:17 Review of Systems Review of Systems: Yes all other systems are reviewed and are negative [facility] Past Medical History Medical History Gangrene Penile cyst Kidney stone Surgical History History of nasal surgery Social History Social History Are you a primary child care worker to a significant other at home: No Alcohol intake: never Patient Tobacco Use Status: Current everyday Tobacco user Cigarettes Per Day: 10 Substance Use Type: Marijuana Physical Exam ED Vital Signs: Vital Signs - 24 hr 11/09/24 16:12 11/09/24 16:38 11/09/24 20:20 Temperature 98 F 98 F 98.4 F Pulse Rate 78 78 63 Respiratory Rate 18 18 16 Blood Pressure 142/76 H 142/76 H 130/76 Pulse Oximetry 99 99 99 Oxygen Delivery Method Room Air Room Air Room Air 11/09/24 21:20 Temperature 98.4 F Pulse Rate 63 Respiratory Rate 16 Blood Pressure 130/76 Pulse Oximetry 99 Oxygen Delivery Method Room Air BMI result Body Mass Index 42.1 Const Other: Patient looks as if he is in of nearly healthy 33-year-old. He has some mild swelling to the right side of his face in the region the right cheek. He does not appear in respiratory distress. His mental status is normal. He does not appear obviously toxic. Orientation/consciousness: patient oriented x3 HENMT Other: There is some mild swelling apparent on the right side of the face in the region of the right cheek. There is a focal area of soft tissue swelling and tenderness just to the side of the patient's nose on the right cheek. This is tender but not fluctuant. The patient has poor dentition. He is particularly tender at tooth #7 which is significantly decayed. Other teeth are decayed as well but only tooth 7. Seems particularly tender with tapping. There is no obvious gingival swelling to suggest a drainable abscess. Neck Other: No cervical adenopathy. The neck is supple and benign. Resp Effort & Inspection: normal respiratory effort Auscultation: clear to auscultation bilaterally Cardio Rate: regular rate Rhythm: regular rhythm Heart sounds: S1 normal heart sound present and S2 normal heart sound present GI Other: Abdomen is soft and nontender Skin Other: some mild soft tissue swelling to the skin of the right cheek. The skin under the right Eyelid is mildly erythematous. Neuro General: patient oriented x3, gait normal, tone normal, moves all extremities, no focal motor deficits and CN's II-XI intact bilaterally Extrem Other: There is no calf swelling or tenderness. No asymmetry. No peripheral edema. Course Course Course Narrative: This is a rapid medical exam performed by Dorene Colón NP: Additional HPI, ROS, PE not included below will be deferred to primary provider. Patient is a 33y/o M seen in this ED this am presenting for increased R facial swelling. Has not picked up or taken his abx yet. Requesting CT scan. Medications Administered Discontinued Medications Generic Name Dose Route Start Last Admin Trade Name Luisa PRN Reason Stop Dose Admin Dexamethasone Sodium Phosphate 12 mg 11/09/24 19:24 11/09/24 20:02 Dexamethasone Sod Phosphate 10 Mg/Ml Vial IVPUSH 11/09/24 19:25 12 mg ONCE ONE Administration Lactated Ringer's 1,000 mls @ 999 mls/hr 11/09/24 17:45 11/09/24 18:36 Lr IV 11/09/24 18:45 Infused .Q1H1M EULALIA Infusion Clindamycin Phosphate 900 mg in 50 mls @ 50 mls/hr 11/09/24 17:44 11/09/24 19:46 Cleocin IV 11/09/24 18:43 Infused ONCE ONE Infusion Acetaminophen 1,000 mg in 100 mls @ 400 mls/hr 11/09/24 19:24 11/09/24 20:17 Ofirmev IV 11/09/24 19:38 Infused ONCE ONE Infusion Sodium Chloride 1,000 mls @ 999 mls/hr 11/09/24 19:30 11/09/24 20:01 Ns IV 11/09/24 20:30 999 mls/hr .Q1H1M EULALIA Administration Iohexol 100 ml 11/09/24 18:09 11/09/24 18:09 Iohexol 350 Mg/Ml 100 Ml Infus..Btl IV 11/09/24 18:10 85 ml ONCE ONE Administration Ketorolac Tromethamine 15 mg 11/09/24 19:24 11/09/24 20:02 Ketorolac Tromethamine 15 Mg/Ml Vial IVPUSH 11/09/24 19:25 15 mg ONCE ONE Administration Medical Decision Making Medical Decision Making [facility] Narrative: The patient is a 33-year-old male who seems to have a right-sided facial infection which I believe is odontogenic with tooth #7 being the most likely source of infection. Tooth 7. Is decayed and exquisitely tender with tapping. There is no gingival soft tissue swelling the indicates an obvious site for drainage of an abscess. There is swelling and tenderness of the face just to the right side of the nose and above the affected tooth. This is tender and indurated but not fluctuant. The patient was given 900 mg of IV clindamycin. A CT scan was done that shows findings consistent with facial cellulitis likely of an odontogenic etiology. No drainable abscess. In addition to IV antibiotics patient was also given IV ketorolac and acetaminophen for pain. Also dose of dexamethasone for swelling. He will be discharged with prescriptions for clindamycin 600 mg t.i.d. times 10 days. Also prescriptions for ibuprofen, acetaminophen, and oxycodone to be used as needed. He was given information for dental offices which accept his insurance, [employer]. He should return if worse. Lab Data Labs: Lab Results 11/09/24 11/09/24 Range/Units 16:35 19:20 Lactic Acid 3.1 H* (0.5-2.0) mmol/L Lactic Acid F/U @ 2Hr 0.9 (0.5-2.0) mmol/L Discharge Plan Discharge Clinical Impression: Cellulitis of face, Dental infection Patient Disposition: Home, Self-Care Additional Instructions: Please take the prescribed clindamycin 3 times a day, approximately every 8 hours. Take your first oral dose at a proximally 03:00 this morning. After that a proximally every 8 hours, 3 times a day. Please apply warm compresses to your face several times a day. Warm compresses may help the infection resolve. I have sent prescriptions for pain medications including acetaminophen, ibuprofen, and oxycodone. You may use these as prescribed as needed. You has been given a sheet of information regarding dental practices which accept [employer]. Please start contacting these offices tomorrow to see if you can get seen by a dentist soon. Also, please work on getting a primary care doctor office as well. I have supplied some contact information for some local PCP offices. If you get significantly worse please return to the emergency room or, possibly go to [facility] where additional specialists may be available. Prescriptions: New clindamycin HCl [Cleocin HCl] 300 mg capsule 600 mg PO TID 10 Days Qty: 60 0RF ibuprofen 400 mg tablet 400 mg PO Q6H PRN (Reason: pain) Qty: 14 0RF acetaminophen 500 mg capsule 1,000 mg PO Q8H PRN (Reason: fever or pain) Qty: 14 0RF oxycodone 5 mg tablet 5 mg PO Q6H PRN (Reason: pain) Qty: 12 0RF Rx Instructions: Partial Fill upon patient request. Discontinued amoxicillin-pot clavulanate 875-125 mg tablet 1 tab PO BID 10 Days Qty: 20 0RF Referrals: [facility] [place] [Provider Group] [facility] [place] [facility], [place] [Provider Group, Internal Medicine] [facility] [place] Primary Care, [facility] [Provider Group, Primary Care] Paula Kauffman MD [Physician, Internal Medicine] Stand Alone Forms: Work/School Release Interventions: ED Discharge Assessment Last Done: 11/09/24 21:20 Discharge Date/Time: 11/09/24 21:20 Print Language: Ukrainian
[2024-11-09 16:38] VITALS: BP 142/76; PULSE 78; RESP 18; TEMP 36.6; O2SAT 99
--- NOTE | 2024-11-09 16:43 | PC.NURSE ---
33 M returned to ED with chipped teeth x 2, R upper mouth, 7/10 pain, and swelling in R cheek which has progressed today. Swelling noted to R cheek. A+Ox4, calm, cooperative. RR even and unlabored, denies CP or SOB.
[2024-11-09] MEDS: Lactated Ringers 1,000 ML 999 ML IV (17:34)
[2024-11-09] MEDS: iohexoL 350 MG/ML 100 ML INFUS..BTL IV (18:09)
--- OUTSIDE RECORDS SUMMARY | 2024-11-09 18:09 | XMS_ITS | Clinical Summary ---
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 Name Role Phone Unavailable Primary Care Provider Unavailabl e Social History Tobacco Use Types Packs/Day Years Used Date Smoking Tobacco: Never Assessed Sex and Gender Information Value Date Recorded Sex Assigned at Not on file Legal Sex Male 2:11 AM EDT Gender Identity Not on file Sexual Orientation Not on file Plan of Treatment Health Maintenance Due Date Last Done Comments Depression Screening 1990 HIV Screening 1990 SDOH Screening 1990 Disability Screening 1990 Alcohol/Substance Use Screening 2002 Tobacco Screening 2002 Family Planning (PISQ) 2005 HPV Vaccines (1 - Male 3-dos e series) 2005 Hepatitis C Screening 2008 DTaP/Tdap/Td Vaccines (1 - Tdap) 2009 Hepatitis B Vaccines (1 of 3 - 19+ 3-dose series) 2009 COVID-19 Vaccine (1 - 2023-2 5 season) 2024 Influenza Vaccine (#1) 2024 Zoster Vaccines (1 of 2) 2040 RSV Patients and Pa tients Aged 60 years or older (1 - 1-dose 75+ series) 2065 HIB Vaccines Aged Out No longer eligi ble based on patient's age to complete this topic Hepatitis A Vaccines Aged Out No long er eligible based on patient's age to complete this topic IPV Vaccines Aged Out No longer eligi ble based on patient's age to complete this topic Meningococcal B Vaccine Aged Out No l onger eligible based on patient's age to complete this topic Meningococcal Vaccine Aged Out No aracelis anthony eligible based on patient's age to complete this topic Pneumococcal Vaccine: Pediat rics (0 to 5 Years) and At-Risk Patients (6 to 49) Years Aged Out No longer eligible b ased on patient's age to complete this topic RSV under 20 months Aged Out No longe r eligible based on patient's age to complete this topic Rotavirus Vaccines Aged Out No longer eligible based on patient's age to complete this topic
[2024-11-09 18:41] LABS: Reflex Lactate? Lactic Acid Added
--- NOTE | 2024-11-09 18:57 | MHC.EDTECH ---
Attempted to draw patient and he was very nervous and kept on moving due to fear of needles. Patient said take the needle out and I was going to for safety reasons
[2024-11-09 19:47] LABS: ~Lactic Acid-LAB USE ONLY 0.9 mmol/L (0.5-2.0)
[2024-11-09 20:20] VITALS: BP 130/76; PULSE 63; RESP 16; TEMP 36.9; O2SAT 99
[2024-11-09 21:20] VITALS: BP 130/76; PULSE 63; RESP 16; TEMP 36.9; O2SAT 99
== END 2024-11-09 21:20 | disposition home or self-care (01) ==
PROVIDERS: Registered Nurse Emergency; Emergency Provider Emergency Medicine
DX: L03.211 Cellulitis of face (principal); K02.9 Dental caries, unspecified; Z72.0 Tobacco use
CPT/HCPCS: 36415; 70487; 83605; 87040; 96361; 96365; 96375; 99284; 99285; J0131; J0736; J1100; J1885; J7120; Q9967

== ENCOUNTER → 2024-11-09 17:49 | Outpatient (BNV) | payer MEDICAID, SELFPAY | PROVIDERS: Emergency Provider Emergency Medicine; Visit Provider Nuclear Medicine | DX: L03.211 Cellulitis of face (principal) | CPT/HCPCS: 70487 ==